=== PATIENT | female | born 1945 | race Caucasian/White ===

== ENCOUNTER → 2017-06-23 | Outpatient (CLI) | payer OTHER ==
[~2017-06-23] MED LIST: ASPIR LOW81 MG PO; ASPIRIN ADULT L81 M1 PO; AUGMENTIN 875 M1 TAB PO; AUGMENTIN 875875 MG PO; CARVEDILOL6.25 MG PO; CIPROFLOXACIN500 MG PO; CLOPIDOGREL75 MG PO; DULCOLAX5 MG PO; DUONEB 3 MG/3 ML3 M1 NEB; INCRUSE EL62.5 MCG/A IH; MEDROL DOSEPAK4 MG PO; NO DAILY MEDS; OXYCODONE5 MG PO; SIMVASTATIN40 MG PO; SPIRIVA18 MCG PO; SYMBICORT1 AER INH
== END | disposition home or self-care (01) ==
LOC: LAB 10:44
DX: D70.9 Neutropenia, unspecified (principal); R59.9 Enlarged lymph nodes, unspecified; C34.90 Malignant neoplasm of unspecified part of unspecified bronchus or lung; C34.92 Malignant neoplasm of unspecified part of left bronchus or lung; Z79.899 Other long term (current) drug therapy

== ENCOUNTER → 2018-02-06 | Outpatient (CLI) | payer OTHER | END | disposition home or self-care (01) | LOC: CARD 14:51 | DX: I08.2 Rheumatic disorders of both aortic and tricuspid valves (principal); I48.91 Unspecified atrial fibrillation ==

== ENCOUNTER → 2018-03-27 | Outpatient (CLI) | payer OTHER ==
[~2018-03-27] MED LIST changes: +ARMOUR THYROID15 M1 PO; +CARDIZEM CD300 MG PO; +CRESTOR10 M1 PO; +DILTIAZEM 24HR120 MG PO; +DILTIAZEM HCL60 M1 PO; +DOXYCYCLINE100 M3 PO; +LASIX40 MG PO; +PACERONE200 MG PO; +PROPAFENONE HC150 MG PO; +SYMB160 INH; -SYMBICORT1 AER INH; +TENORMIN25 MG PO; +VITAMIN D35000 UNIT PO; +XARELTO20 M1 PO
== END | disposition home or self-care (01) ==
LOC: CARD 11:00
DX: R00.0 Tachycardia, unspecified (principal); I08.0 Rheumatic disorders of both mitral and aortic valves; I31.4 Cardiac tamponade

== ENCOUNTER → 2018-03-30 | Outpatient (CLI) | payer OTHER ==
[~2018-03-30] MED LIST changes: -ARMOUR THYROID15 M1 PO; -DILTIAZEM 24HR120 MG PO; -DOXYCYCLINE100 M3 PO; -PACERONE200 MG PO; -VITAMIN D35000 UNIT PO
== END | disposition home or self-care (01) ==
LOC: US 13:30
DX: I65.23 Occlusion and stenosis of bilateral carotid arteries (principal); I31.4 Cardiac tamponade; I77.9 Disorder of arteries and arterioles, unspecified

== ENCOUNTER 2018-08-03 02:46 | Inpatient (IN) | payer OTHER ==
[~2018-08-03] VITALS: Ht 160 cm; Wt 81.8 kg
[2018-08-03] VITALS (8 sets, daily range): BP systolic 91–128; BP diastolic 42–68
--- NOTE | ~2018-08-03 | EKG ---
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 Ectopic atrial rhythm Low voltage, extremity leads Anterolateral ST/T abnormality, ischemia, Prolonged QT interval Compared to ECG 07/19/2018 14:06:38 Early repolarization now present Possible ischemia now present First degree AV block no longer present ST (T wave) deviation no longer present Electronically Signed On 08-05-2018 12:46:18 PDT by Shoaib Lee CM:EKGRPT:ELECTROCARDIOGRAM REPORT [id number] REESE FRANKEL DRAFT REPORT REESE HERNANDEZ DO
--- NOTE | ~2018-08-03 | PR ---
[place], [place] PROGRESS NOTE NAME: ALKA BETH [facility] #: [id number] UNIT #: [id number] ROOM: 522 DOCTOR: KAMI RIZO MD,GUILLERMINA BIRTHDATE: [birth year] DOS: 08/05/2018 PULMONARY PROGRESS NOTE SUBJECTIVE: The patient noted comfortable at this time, resting on the bed this morning of assessment has not been noted any ongoing acute new complaints at this time, shortness breath was improving. Coughing has been decreasing. There was a small amount of sputum expectoration. The patient transferred to ICU to the telemetry floor. Denies symptoms of fever or chills, cough or any hemoptysis. Remaining systems were reviewed. They were noted negative. OBJECTIVE: VITAL SIGNS: For the patient which has been recorded shows a normal temperature, respiratory rate 20, heart rate 100, blood pressure 94/61. Pulse oxygen saturation with 3.5 liters nasal canula 95% saturation. Intake 1340, output 1975 mL, the patient has negative 635 mL. HEENT: Examination shows head was atraumatic. Eyes nonicterus. CARDIOVASCULAR: S1, S2 was audible. LUNGS: Noted decreased breath sounds in the lungs bilaterally with scattered crackles. Breaths are noted decreased more on the left than the right side. There are no wheezing heard. ABDOMEN: Soft, nontender. Bowel sounds present. EXTREMITIES: The patient was noted without any acute edema. VISIBLE SKIN: No lesions or rashes. CENTRAL NERVOUS SYSTEM: Intact. MUSCULOSKELETAL: Without acute deformities. LABORATORY DATA: CBC today, WBC count 19.6, hemoglobin 10.5, hematocrit 34.1, platelet count were normal, 94% segmented neutrophils. BMP that was done for this patient was noted as BUN 25, creatinine 1.69. CO2 was 34. IMPRESSION: 1. Resolving acute congestive heart failure with acute pneumonia as well. History of known lung cancer. 2. Acute respiratory failure was also noted for this patient with chronic respiratory failure. 3. Chronic anticoagulation, history of atrial fibrillation. 4. Leukocytosis was also noted. Today, CBC showed, WBC count 19.6. PLAN OF MANAGEMENT: Continuation of the bronchodilators and oxygen supplementation at the present time. Continue the BiPAP as ordered. Continue diuretics, mild leukocytes. Solu-Medrol dose will be decreased possibly tomorrow. Chest x-ray in the morning as the progression of the current pulmonary infiltration and pleural effusions. No thoracentesis was planned at this time. Usual care, other therapy, plan of management, additional treatment changes made based on progression of illness. [place], [place] PROGRESS NOTE NAME: ALKA BETH UNIT #: [id number] ROOM: 2 DOCTOR: GUILLERMINA DELGADILLO MD BIRTHDATE: [birth year] GUILLERMINA MCCLURE MD CM:PNTRANS [id number] GUILLERMINA RIZO MD 08/15/18 1043 interface
--- NOTE | ~2018-08-03 | EKG ---
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1945 Requested By: REESE HERNANDEZ Order Number: [id number] Reading MD: Shoaib Lee Measurements Intervals [place] Rate: 90 P: 265 [place]: 133 QRS: -82 QRSD: 107 T: 95 QT: 420 QTc: 514 Interpretive Statements Sinus or ectopic atrial rhythm Inferior infarct, old Lateral leads are also involved Prolonged QT interval Compared to ECG 07/19/2018 14:06:38 Myocardial infarct finding now present First degree AV block no longer present ST (T wave) deviation no longer present Electronically Signed On 08-05-2018 12:44:49 PDT by Shoaib Lee CM:EKGRPT:ELECTROCARDIOGRAM REPORT [id number] 1244 REESE FRANKEL DRAFT REPORT REESE HERNANDEZ DO
--- NOTE | ~2018-08-03 | CON ---
[place], [place] RE[facility] CONSULTATION [id number] UNIT #: [id number] ROOM: [facility] DOCTOR: GUILLERMINA DELGADILLO MD BIRTHDATE: [birth year] DOS: 08/03/2018 PULMONARY CONSULTATION, EVALUATION, AND MANAGEMENT CONSULTATION REQUESTED BY: Hospitalist service. REASON FOR CONSULTATION: For the assessment of current respiratory failure. HISTORY OF PRESENT ILLNESS: This is a 73-year-old white female patient who has been noted in the past followed up in the outpatient regular basis. She has been known with past history of cancer, which has been managed in the past and being monitored by the medical oncologist at [place], [place]. The patient came into the hospital and admitted under the care of the hospitalist services. The patient was reporting having progressive increase of shortness of breath ongoing for the past few days. Symptoms are noted progressive worsening as well. She has been using more oxygen without any relief. She was also reporting symptoms of chills as well. The symptoms have been present for the 2-3 weeks as well. Chest congestion was noted with some sputum expectoration. There were no symptoms of hemoptysis. She was also complaining of intermittent pain in the substernal area, which described to be sharp at this time without any radiation. The patient has been assessed in the hospital and was admitted to the hospital and a chest x-ray done, was noted to increase volume loss on the left side of the chest. REVIEW OF SYSTEMS: CONSTITUTIONAL: Fatigue and tiredness noted without any symptoms of fever or chills. EYES: Denies burning, redness, or tenderness. EARS, NOSE, THROAT SYMPTOMS: Denies sore throat, hoarseness, otalgia, postnasal drainage or epistaxis. CARDIOVASCULAR: No anginal pain, edema, or pain of the lower extremities. GASTROINTESTINAL: Denies dysphagia, nausea, vomiting, diarrhea, abdominal pain, hematemesis, melena, or hematochezia. SKIN: No abnormal lesions or rashes. MUSCULOSKELETAL: No acute joint pain, redness, or tenderness. CENTRAL NERVOUS SYSTEM: Denies dizziness, headache, diplopia, or syncopal episodes. Remaining systems were reviewed and they were noted all negative. PAST MEDICAL HISTORY: 1. History of chronic hypoxic respiratory failure, long-term use of oxygen 3 liters nasal cannula. 2. Chronic obstructive pulmonary disease. 3. History of bronchial asthma, severity unknown and defined. 4. Essential hypertension. 5. Coronary artery disease. 6. Inoperable left lung cancer treated with radiation and chemotherapy. 7. Chronic obesity. 8. History of paroxysmal atrial fibrillation. [place], [place] REPORT OF CONSULTATION NAME: ALKA BETH UNIT #: [id number] ROOM: [facility] DOCTOR: GUILLERMINA DELGADILLO MD BIRTHDATE: [birth year] 9. Hypothyroidism. SOCIAL HISTORY: The patient is and lives at home. No history of alcohol use, illicit drug use. Tobacco use, started patient as a teenager, as a pack of cigarettes per day until 2011. FAMILY HISTORY: The patient was noted both parents have been . Father of a motor vehicle accident. Mother of an old age. HOME MEDICATIONS: Listed on admission as use of Breo Ellipta, Symbicort, Pacerone, aspirin, atenolol, Cardizem, Lasix, Xarelto, Crestor, [place] Thyroid. Treated with the medication including use of Xarelto for anticoagulant. CURRENT MEDICATIONS: Which has been ongoing administrated were vitamin D, aspirin, Lipitor, thyroid, atenolol, Xarelto, Solu-Medrol 40 mg b.i.d., amiodarone, Pulmicort Respules, Lasix, DuoNeb, IV Rocephin, and Zithromax. DRUG ALLERGIES: No known drug allergies. PHYSICAL EXAMINATION: GENERAL: A 73-year-old female patient who has been noted to be comfortable on the resting on the bed without any distress this morning of assessment, using oxygen supplementation by nasal cannula. VITAL SIGNS: Height of 5 feet 3 inches, weight 180 pounds, BMI 31.9 on this admission in the ICU. Vital signs, which are recorded at a normal temperature since admission, respiratory rate ranged between 18-28. The heart rate of 73-182, blood pressure 92/42-125/58. Pulse oxygen saturation recorded on 3 liters nasal cannula, rest is 92% saturation. HEENT: Kixi-zr-qqhempjn obesity. Head was atraumatic. Eyes nonicterus. NECK: Supple. CARDIOVASCULAR: S1, S2 is audible. LUNGS: The patient was noted with severely reduced breath sounds on the left chest auscultation, expiratory wheezing noted in the left side of the chest. ABDOMEN: Soft, nontender. Bowel sounds present. EXTREMITIES: The patient noted without acute edema. MUSCULOSKELETAL: Noted without any acute deformities CENTRAL NERVOUS SYSTEM: Intact. LABORATORY DATA: CBC that was done on 08/03/2018, this morning of admission earlier in the Emergency Room, WBC count normal, hemoglobin 10.4, platelet count was normal, eosinophils of 3.3%. PT/INR 1.3, PTT of 32.8. CMP that was done 08/03/2018, BUN 21, creatinine 1.50. Arterial blood gas that was done 4:29 a.m. on 3 liters, pH 7.45, pCO2 of 37, pO2 54. Arterial blood gas, which were repeated at 7:00 a.m. this morning, pH of 7.46, pCO2 of 33, pO2 79.4 with 45% oxygen, BiPAP settings of 12/6. Troponin were noted as negative study. The chest x-ray that was done personally reviewed, 1 view noted with increasing opacification as compared with the last chest x-ray from 04/2018 with progressive volume loss on the left side. The tracheal deviation also noted in the left side. Compensatory hyperinflation on the right lung with a small pleural fluid was suspected possibility of interstitial edema cannot be [place], [place] REPORT OF CONSULTATION NAME: ALKA BETH UNIT #: [id number] ROOM: [facility] DOCTOR: GUILLERMINA DELGADILLO MD BIRTHDATE: [birth year] completely excluded. IMPRESSION: 1. The patient will be currently admitted to the hospital noted acute on chronic hypoxemic respiratory failure as a result of consideration of congestive heart failure, very likely. 2. Concomitant acute exacerbation of chronic obstructive pulmonary disease was also considered. 3. The patient with known history of atrial fibrillation noted relatively uncontrolled at this time, treated with amiodarone and anticoagulants of Xarelto 4. History of known lung cancer, inoperable, treated with radiation and chemotherapy with fibrothorax as well, part of the lung noted expanded previous of left upper lung, which appeared to be complete atelectasis at this time would be considered. The patient stated that she had a PET scan, which has been done by her medical oncologist most likely last May and reported without any evidence of malignant process at that time. PLAN OF MANAGEMENT: Use of the BiPAP would be advised to be continued. Continue diuretic. Monitor respiratory status. Obtain CT scan of chest without contrast because of elevation of BUN and creatinine, IV contrast would not be used. Bronchodilators to be administered. Assess the patient's Pleural fluid, which will be visible on the CT scan of the chest. The patient has involved with the suggesting additional treatment changes based on made after the CT scan of the chest results become available. Other therapy, plan of management. Usual care, other supportive plan of management, treatment plan and of care and all other therapies. Thanks for allowing me to participate in the care of this patient. GUILLERMINA MCCLURE MD CM:CONSTR:REPORT OF CONSULTATION 1448 08/03/18 1953 interface
--- NOTE | ~2018-08-03 | PR ---
[place], [place] PROGRESS NOTE NAME: ALKA BETH UNIT #: [id number] ROOM: 522 DOCTOR: GUILLERMINA DELGADILLO MD BIRTHDATE: [birth year] DOS: 08/07/2018 PULMONARY PROGRESS NOTE SUBJECTIVE: The patient independently seen and examined in [id number] encounter, history was confirmed. Physical examination performed. The labs were reviewed. Note done by the product manager medical device was approved. Assessment and management for today's note was personally completed. The patient was noted comfortable at this time, resting on the bed. Shortness of breath is improving. The coughing has been resolving. There were no symptoms of chest pain. She is stating she was feeling her symptoms close to the baseline this morning. Oxygen supplement continue the patient about 5 liters nasal cannula. PHYSICAL EXAMINATION: GENERAL: The patient comfortably sitting on the bed this morning of assessment. VITAL SIGNS: Normal temperature, respiratory rate 18, heart rate 87, blood pressure 89/48-118/80. Pulse oxygen saturation on 3-4 liters nasal cannula was 92% saturation. HEENT: Head was atraumatic. Eyes nonicterus. NECK: Supple. CARDIOVASCULAR: S1, S2 audible. LUNGS: Noted decreased breath sounds on the left lung with no wheeze or crackles. ABDOMEN: Soft, nontender. Bowel sounds present. EXTREMITIES: No acute change. IMPRESSION: Stable respiratory status, improving at this time. Clinical radiology resolving acute pneumonia, congestive heart failure and acute on chronic respiratory failure. PLAN OF MANAGEMENT: The patient could be discharged on oral antibiotics and diuretics and to readjust the oxygen need prior to discharge. Discharge planning was discussed with primary care attending. [place], [place] PROGRESS NOTE NAME: SOY BETHRA Dalia UNIT #: [id number] ROOM: 522 DOCTOR: GUILLERMINA DELGADILLO MD BIRTHDATE: [birth year] GUILLERMINA MCCLURE MD CM:PNTRANS [id number] GUILLERMINA RIZO MD 08/15/18 1045 interface
--- NOTE | ~2018-08-03 | PR ---
[place], [place] PROGRESS NOTE NAME: ALKA BETH UNIT #: [id number] ROOM: 522 DOCTOR: GUILLERMINA DELGADILLO MD BIRTHDATE: [birth year] DOS: 08/06/2018 PULMONARY PROGRESS NOTE SUBJECTIVE: The patient noted comfortable at this time, resting on the bed at this time. The patient has not reported any ongoing acute respiratory complaints at the present time. Shortness of breath has been improving. The coughing has been noted mild. There were no symptoms of chest pain, fever or chills. OBJECTIVE: VITAL SIGNS: For the patient which were recorded this morning, the temperature remains normal, respiratory rate recorded at 20, heart rate of 103, blood pressure 92/65. Intake 1690. Pulse ox saturation 3-1/2 liters nasal cannula 95% saturation. BiPAP 95% saturation. HEENT: Examination shows head was atraumatic. Eyes nonicterus. NECK: Supple. CARDIOVASCULAR: S1, S2 audible. LUNGS: The patient was noted without any wheezing or crackles on the right side. The left side, noted improvement in aeration in the left lower lung. LABORATORY DATA: The patient's chest x-ray this morning noted improvement in aeration, resolving acute pulmonary filtration, resolution of the right pleural effusion. IMPRESSION: 1. Resolving acute congestive heart failure, acute pneumonia. 2. History of known lung cancer, treated with chemotherapy and radiation. PLAN OF MANAGEMENT: Continue current plan of management at this time without any changes. Possible consideration of home discharge upon stability in the next 24 hours may be suggested. [place], [place] PROGRESS NOTE NAME: ALKA BETH Daila UNIT #: [id number] ROOM: 522 DOCTOR: GUILLERMINA DELGADILLO MD BIRTHDATE: [birth year] GUILLERMINA MCCLURE MD CM:PNTRANS [phone] GUILLERMINA RIZO MD 08/15/18 1045 interface
--- NOTE | ~2018-08-03 | EKG ---
[place], [place] ELECTROCARDIOGRAM REPORT NAME: ALKA BETH UNIT #: [id number] ROOM: 522 DOCTOR: NBA DRAFT REPORT BIRTHDATE: [address] 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1945 Requested By: REESE HERNANDEZ Order Number: [id number] Reading MD: Shoaib Lee Measurements Intervals [place] Rate: 96 P: 240 [place]: 166 QRS: -42 QRSD: 95 T: 170 QT: 366 QTc: 463 Interpretive Statements Ectopic atrial rhythm Left axis deviation Low voltage, extremity and precordial leads St/T abnormality inferior and anteriro Compared to ECG 07/19/2018 14:06:38 Left-axis deviation now present First degree AV block no longer present Prolonged QT interval no longer present ST (T wave) deviation still present Electronically Signed On 08-05-2018 12:48:00 PDT by Shoaib Lee CM:EKGRPT:ELECTROCARDIOGRAM REPORT [id number] 1248 REESE FRANKEL DRAFT REPORT REESE HERNANDEZ DO
--- NOTE | ~2018-08-03 | PR ---
[place], [place] PROGRESS NOTE NAME: ALKA BETH [facility] #: [id number] UNIT #: [id number] ROOM: 522 DOCTOR: KAMI RIZO MD,GUILLERMINA BIRTHDATE: [birth year] DOS: 08/04/2018 PULMONARY PROGRESS NOTE SUBJECTIVE: The patient was noted comfortable at this time. Shortness breath was noted decreased Cough has been noted, but there was no sputum expectoration stated. Denies symptoms of fever or chills. Denies symptoms of hemoptysis. The patient is using the BiPAP, also requires the oxygen supplementation, high flow nasal cannula with mild exertion, hypoxia was noted. Otherwise, the patient noted comfortable. Denies symptoms of headache or diplopia. Denies symptoms of pain of the lower extremities. Remaining systems were reviewed with the patient and they were noted all negative. OBJECTIVE: GENERAL: At this time, the patient is comfortable, sitting on the bed, using oxygen supplementation with nasal cannula. VITAL SIGNS: Normal temperature, respiratory rate of 20-16, heart rate of 98-69, and blood pressure of 90/51-100/40. Pulse oxygen saturation on 4 liters nasal cannula is 91% and 94% saturation. HEENT: Examination shows head was atraumatic. Eyes nonicterus. NECK: Supple. CARDIOVASCULAR SYSTEM: S1, S2 is audible. LUNGS: Noted decreased breath sounds, greater on the left than the right side. There was no wheezing. ABDOMEN: Soft, nontender. Bowel sounds present. EXTREMITIES: Noted without any acute edema. MUSCULOSKELETAL: Without acute deformities. CENTRAL NERVOUS SYSTEM: Noted essentially intact. IMAGING DATA: CT scan of the chest, which was done with contrast was reviewed independently from PACS images The patient was noted with evidence of a moderate right pleural fluid, small left-sided pleural fluid, pulmonary infiltration noted in the lung rivers as compared with previous chest x-ray. A 1.1 cm nodule noted in the right lower lobe at this time as well. Volume loss was noted in the left hemithorax, progressive with area of calcification. LABORATORY DATA: BMP this morning, BUN is 18 and creatinine is 1.55. Remaining electrolytes are normal. CBC, normal WBC count, hemoglobin was 9.4, hematocrit was 30.4, and platelet count was normal. IMPRESSION: 1. The patient with evidence of known history of lung cancer, treated with chemotherapy, radiation for cancer in right lung with post-radiation therapy changes were noted in right hemithorax. In addition, the patient was also noted with findings of acute pneumonia, very likely. 2. Fluid overload, congestive heart failure also to be considered very likely for the current pleural fluid formation as well. 4. The patient with acute exacerbation of chronic obstructive pulmonary disease/bronchial asthma as well. 5. Right lobe pulmonary nodule stable at this time unclear. [place], [place] PROGRESS NOTE NAME: ALKA BETH UNIT #: [id number] ROOM: 522 DOCTOR: KAMI RIZO MD,GUILLERMINA BIRTHDATE: [birth year] PLAN OF MANAGEMENT: Continue the corticosteroids, bronchodilator, and current antibiotics. The patient could be transferred to telemetry floor. Continuation of the close monitor of respiratory status. Diuretic therapy should be given as ongoing as Lasix 40 mg b.i.d. that will result in resolution of the pleural fluid. Conservative treatment will be continued. Titrate oxygen supplementation to maintain pulse ox 92% or greater. Supportive care, other therapy, plan of management, care, and plan of treatments. GUILLERMINA MCCLURE MD CM:PNTRANS [id number] GUILLERMINA RIZO MD 08/15/18 1042 interface
--- NOTE | ~2018-08-03 | PR ---
[place], [place] PROGRESS NOTE NAME: ALKA BETH UNIT #: [id number] ROOM: 522 DOCTOR: AWILDA HENSLEY DO BIRTHDATE: [birth year] DOS: 08/07/2018 PULMONARY PROGRESS NOTE SUBJECTIVE: The patient was resting in bed comfortably, eating her breakfast this morning. The patient states that her breathing is much better today. The patient has only a mild cough. The patient denies any chest pain, fever or chills. All other review of systems negative. PHYSICAL EXAMINATION: VITAL SIGNS: Temperature is 97.5, pulse rate 87, respiratory rate 18, blood pressure is 118/80, pulse ox 95% on 4 liters by nasal cannula. HEENT: Normocephalic, atraumatic. Eyes nonicteric. NECK: Supple, nontender, trachea midline. CARDIOVASCULAR: S1, S2 audible. LUNGS: Right lung, mild wheezing. The left side has some breath sounds; however, they are coarse and scattered. IMAGING: Chest x-ray shows improvement of the aeration of the left lung. Right lung shows improvement in the effusion. ASSESSMENT: 1. Resolving acute congestive heart failure, pulmonary edema. 2. Acute pneumonia, resolving. 3. History of known lung cancer, which has been treated with radiation and chemotherapy. PLAN: Continue current plan at this time without any changes. The patient will be discharged home from ID standpoint with additional 5-7 days of antibiotics. Miguel A Hensley DO [place], [place] PROGRESS NOTE NAME: ALKA BETH UNIT #: [id number] ROOM: 522 DOCTOR: AWILDA HENSLEY DO BIRTHDATE: [birth year] GUILLERMINA MCCLURE MD CM:PNTRANS 1209 09 AWILDA HENSLEY DO 08/08/18 1228 interface
[~2018-08-03 02:46] MED LIST changes: +PACERONE200 MG PO
[2018-08-03 03:17] LABS: BASO # 0.1 10*3/uL (0.0-0.1); EOS # 0.2 10*3/uL (0.0-0.4); EOS % 3.3 % (1.0-4.0); HEMATOCRIT 32.5 % (37.0-47.0); HEMOGLOBIN 10.4 g/dl (12.0-16.0); LYMPH # 0.9 10*3/uL (1.3-4.4); LYMPH % 12.2 % (27.0-41.0); MEAN CELL VOLUME 98.8 fl (81.0-99.0); MEAN CORPUSCULAR HGB 31.6 pg (27.0-31.0); MEAN PLATELET VOLUME 8.9 fl (9.6-12.3); MONO # 0.6 10*3/uL (0.1-1.0); MONO % 8.5 % (3.0-9.0); NEUT # 5.2 10*3/uL (2.3-7.9); NEUT % 74.4 % (47.0-73.0); PLATELET COUNT AUTOMATED 372 10*3/uL (130-400); RED BLOOD COUNT 3.29 10*6/uL (4.10-5.10); RED CELL DISTRI WIDTH 17.1 % (0-14.5)
[2018-08-03 03:35] LABS: ALBUMIN 2.8 gm/dl (3.1-4.5); CREATININE 1.5 mg/dL (0.55-1.02); POTASSIUM 3.6 mmol/L (3.5-5.1); TOTAL PROTEIN 7.4 gm/dL (6.4-8.2)
[2018-08-03 03:38] LABS: ACT PARTIAL THROMBO TIME 32.8 SECONDS (20.0-32.1); INTERNATIONAL NORM RATIO 1.3 (2.0-3.5)
[2018-08-03 03:41] LABS: TROPONIN I 0.03 ng/ml (<0.045)
[2018-08-03 04:35] LABS: ABG BASE EXCESS 2.7 mmol/L (-2.0-2.0); ABG HCO3 26.3 mmol/l (22-26); ABG O2 SATURATION 89.5 % (95-97); ARTERIAL BLOOD GAS PCO2 37.9 mmHg (35-45); ARTERIAL BLOOD GAS PH 7.454 (7.35-7.45); ARTERIAL BLOOD GAS PO2 54.3 mmHg (80-90)
--- NOTE | 2018-08-03 04:50 | NUR ---
A 73 YEAR OLD FEMALE admitted to ICCU, under the services of JONA Mixon DO with a diagnosis of PLEURAL EFFUSION, COPD. Chief complaint is INCREASING SOB. Patient arrived via stretcher from ER. Monitor applied. Initial assessment completed. Vital signs taken and recorded. JONA MIXON DO notified of admission to the unit. Orders received. See assessment for past medical history, medications and allergies. Patient and/or family oriented to unit. [facility] visitation policy reviewed. Clothing/patient valuable form completed. PATRIZIA GOULD
--- NOTE | 2018-08-03 05:36 | NUR ---
PT PLACED ON BIPAP ORDERED. PULSE OX 98%. LASIX IV GIVEN ORDERED.
--- NOTE | 2018-08-03 05:57 | NUR ---
UNABL TO DO MEDREC. PT DOES NOT KNOW HOME MEDS. DTR HAD LIST AND TOOK HOME WITH HER. UNABLE TO CALL PHARMACY NOW.
--- NOTE | 2018-08-03 06:09 | NUR ---
RESTING IN BED WITH HOB ELEVATED. SIDE RAILS UP X'S 2. CALL LIGHT INREACH. PULSE OX 98% ON 45% FIO2 VIA BIPAP. HEP LOCK INTACT. BETH PATENT AND DRAINING CLEAR YELLOW URINE. NO DISTRESS NOTED. CONDITION GUARDED.
[2018-08-03 07:15] LABS: ABG HCO3 27.7 mmol/l (22-26); ABG O2 SATURATION 96.5 % (95-97); ARTERIAL BLOOD GAS PCO2 38.7 mmHg (35-45); ARTERIAL BLOOD GAS PH 7.466 (7.35-7.45); ARTERIAL BLOOD GAS PO2 79.4 mmHg (80-90)
--- NOTE | 2018-08-03 09:03 | NUR ---
DR MCCLURE SAW PT
[2018-08-03] MEDS ORDERED: VITAMIN D35000 UNIT PO (11:40)
[2018-08-03] MEDS ORDERED: ARMOUR THYROID15 M1 PO (11:43)
--- NOTE | 2018-08-03 15:52 | NUR ---
up to recliner
--- NOTE | 2018-08-03 20:22 | NUR ---
1930 RESTING IN BED WITH HOB ELEVATED. CALL LIGHT IN REACH. PULSE OX IS 92% ON 4L. HEP LOCK INTACT. NO DISTRESS NOTED. STATES " I FEEL MUCH BETTER,"
[2018-08-04] VITALS: BP 92/54
--- NOTE | 2018-08-04 00:24 | NUR ---
RESTING IN BED WITH EYES CLOSED. APPEARS TO BE SLEEPING. PULSE OX 98% ON 4L. REFUSED BIPAP EARLIER. WILL CONT TO MONITOR.
[2018-08-04 04:00] VITALS: BP 96/60
[2018-08-04 05:55] LABS: CREATININE 1.55 mg/dL (0.55-1.02); POTASSIUM 3.7 mmol/L (3.5-5.1)
--- NOTE | 2018-08-04 06:16 | NUR ---
SLEPT WELL THIS SHIFT. REMAINS WIHTOUT C/O'S RESPIRATIONS EASY. 02 INTACT. BETH PATENT. NO DISTRESS NOTED CONDITION GUARDED.
[2018-08-04 06:19] LABS: HEMATOCRIT 30.4 % (37.0-47.0); HEMOGLOBIN 9.4 g/dl (12.0-16.0); MEAN CELL VOLUME 100.3 fl (81.0-99.0); MEAN CORPUSCULAR HGB CONC 30.9 g/dl (33.0-37.0); MEAN PLATELET VOLUME 9.2 fl (9.6-12.3); PLATELET COUNT AUTOMATED 318 10*3/uL (130-400); RED BLOOD COUNT 3.03 10*6/uL (4.10-5.10); RED CELL DISTRI WIDTH 17.1 % (0-14.5); WHITE BLOOD COUNT 8.9 10*3/uL (4.8-10.8)
[2018-08-04 07:49] LABS: PLATELET SUFFICIENCY NORMAL (NORMAL); TOTAL CELLS COUNTED 100 #CELLS
[2018-08-04 08:00] VITALS: BP 100/40
[2018-08-04 12:00] VITALS: BP 90/51
--- NOTE | 2018-08-04 12:53 | NUR ---
STATES OKAY FOR PATIENT TO BE TRANSFERRED FROM ICU TO FLOOR. NOTIFIED.
--- NOTE | 2018-08-04 14:55 | NUR ---
ASSUMED PATIENT CARE AT THIS TIME. [facility]. PATIENT AWAKE AND ALERT ON 4LNC. DENIES CP, SOB, PAIN AT THIS TIME. HAS NO COMPLAINTS. SEE ASSESSMENT.
[2018-08-04 16:00] VITALS: BP 112/62
[2018-08-04 20:00] VITALS: BP 100/48; BP 91/48
[2018-08-05] VITALS: BP 92/60
[2018-08-05 06:20] LABS: HEMATOCRIT 34.1 % (37.0-47.0); HEMOGLOBIN 10.5 g/dl (12.0-16.0); MEAN CELL VOLUME 101.8 fl (81.0-99.0); MEAN CORPUSCULAR HGB 31.3 pg (27.0-31.0); MEAN CORPUSCULAR HGB CONC 30.8 g/dl (33.0-37.0); MEAN PLATELET VOLUME 8.9 fl (9.6-12.3); PLATELET COUNT AUTOMATED 373 10*3/uL (130-400); RED BLOOD COUNT 3.35 10*6/uL (4.10-5.10); RED CELL DISTRI WIDTH 17.6 % (0-14.5); WHITE BLOOD COUNT 19.6 10*3/uL (4.8-10.8)
[2018-08-05 06:39] LABS: PLATELET SUFFICIENCY NORMAL (NORMAL); POLYCHROMASIA SLIGHT; TOTAL CELLS COUNTED 100 #CELLS
[2018-08-05 06:46] LABS: CREATININE 1.69 mg/dL (0.55-1.02); POTASSIUM 3.9 mmol/L (3.5-5.1)
[2018-08-05 08:00] VITALS: BP 94/61
[2018-08-05 12:00] VITALS: BP 107/62
[2018-08-05 15:45] VITALS: BP 90/58
[2018-08-05 20:00] VITALS: BP 92/65
--- NOTE | 2018-08-05 22:52 | NUR ---
PATIENT REQUESTED BIPAP BE PUT ON AT THIS TIME. SHE THEN REQUESTED TO BE AWOKEN AT 3AM TO SEE IF SHE FEELS "WELL ENOUGH" TO CONTINUE WEARING IT. PATIENT SHOWS NO SIGNS OR SYMPTOMS OF DISTRESS.
[2018-08-06] VITALS: BP 77/46; BP 92/56
--- NOTE | 2018-08-06 03:26 | NUR ---
PATIENT FOUND OFF BIPAP AND BACK ON NASAL CANNULA AT 4 L/M.
[2018-08-06 06:24] LABS: HEMATOCRIT 33.9 % (37.0-47.0); HEMOGLOBIN 10.3 g/dl (12.0-16.0); MEAN CELL VOLUME 101.2 fl (81.0-99.0); MEAN CORPUSCULAR HGB 30.7 pg (27.0-31.0); MEAN CORPUSCULAR HGB CONC 30.4 g/dl (33.0-37.0); MEAN PLATELET VOLUME 8.9 fl (9.6-12.3); PLATELET COUNT AUTOMATED 355 10*3/uL (130-400); RED BLOOD COUNT 3.35 10*6/uL (4.10-5.10); RED CELL DISTRI WIDTH 17.3 % (0-14.5); WHITE BLOOD COUNT 13.9 10*3/uL (4.8-10.8)
[2018-08-06 06:45] LABS: PLATELET SUFFICIENCY NORMAL (NORMAL); TOTAL CELLS COUNTED 100 #CELLS
[2018-08-06 06:46] LABS: POLYCHROMASIA SLIGHT
[2018-08-06 06:51] LABS: CREATININE 1.68 mg/dL (0.55-1.02); POTASSIUM 4.1 mmol/L (3.5-5.1)
[2018-08-06 08:00] VITALS: BP 102/65
--- NOTE | 2018-08-06 10:08 | NUR ---
PATIENT HAS C/O CONSTIPATION. DULCOLAX ADMINISTERED PRESCRIBED. WILL MONITOR.
[2018-08-06 10:09] VITALS: BP 100/42
--- NOTE | 2018-08-06 12:25 | NUR ---
ATENOLOL GIVEN PER JAMES DELACRUZ. PATIENT HAS CHRONIC LOW BP. 108/54 AT THIS TIME. WILL MONITOR.
--- NOTE | 2018-08-06 14:01 | NUR ---
Pattern Duplicator in to talk to patient. Patient states lives at HOME with . There are NO steps in the home. Physician: [facility] Pharmacy: [facility] health services: NONE Patient's level of ADLs: INDEPENDENT Patient has working utilities: YES DME: OXYGEN, PORTABLE TANKS, NEBULIZER Follow-up physician's appointment after d/c: WILL BE MADE BY HOSPITALIST NURSE DIRECTOR ON DISCHARGE Does patient want to access PORTAL?: NO Discharge plan PT LIVES AT HOME WITH HER AND IS INDEPENDENT IN HER CARE. DENIES ANY NEEDS ON DISCHARGE. WILL CONTINUE TO FOLLOW. DAUGHTER WILL TAKE HER HOME.. KAREN JEFFRIES
[2018-08-06 16:00] VITALS: BP 102/64
[2018-08-06 20:00] VITALS: BP 107/86
--- NOTE | 2018-08-06 20:00 | NUR ---
PATIENT SITTING UP IN BED, HAS NO COMPLAINTS. STATED SHE HASNT HAD A BM SINCE RECEIVING DULCOLAX TODAY. WANTED TO WAIT AWHILE BEFORE SHE TOOK ANYTHING ELSE. PATIENT STATED HE SHORTNESS OF BREATH HAS IMPROVED, DENIES CHEST PAIN. PATIENT LEFT WITH CALL LIGHT IN REACH.
--- NOTE | 2018-08-06 23:08 | NUR ---
24 HR chart check completed.
[2018-08-07] VITALS: BP 118/80
--- NOTE | 2018-08-07 01:09 | NUR ---
PATIENT AWOKE AND WANTED OFF BIPAP. THEN ASK FOR SOMETHING TO HELP HER HAVE A BM. DULCOLAX WAS GIVEN. WILL AWAIT EFFECTIVENESS.
[2018-08-07 07:59] VITALS: BP 89/48
--- NOTE | 2018-08-07 09:25 | NUR ---
Rivero catheter removed per order. 650cc output from drainage bag, blood tinged output. Catheter intact upon removal. Patient tolerated well.
[2018-08-07] MEDS ORDERED: DILTIAZEM 24HR120 MG PO (11:14)
[2018-08-07] MEDS ORDERED: DOXYCYCLINE100 M3 PO (11:14)
--- NOTE | 2018-08-07 11:36 | NUR ---
HOME O2 EVALUTATION PRE BP 89/61 SPO2 ON ROOM AIR AT REST - 85% PT PLACED ON 4LNC. SPO2 INCREASED TO 93% PT AMBULATED ON 4LNC - SPO2 87% O2 INCREASED TO 6LNC - SPO2 91% SPO2 POST AMBULATION ON 4LNC 95% POST BP 100/60
[2018-08-07 12:10] VITALS: BP 89/61
--- NOTE | 2018-08-07 14:34 | NUR ---
PT WILL RETURN HOME WITH NO NEW NEEDS. WILL CONTINUE TO FOLLOW.
--- NOTE | 2018-08-07 14:38 | NUR ---
Discharge instructions reviewed with patient/family. Patient receptive and verbalizes understanding. Follow-up care arranged. Written instructions given to patient/family. PATIENT TAKEN FROM FLOOR BY WHEELCHAIR BY AIDE. NO S/S OF DISTRESS. ARTIE DAVIS
== END 2018-08-07 14:38 | disposition home or self-care (01) | DRG 871 ==
LOC: ED 02:46 → EDHOLD 04:07 → ICCU 04:07 → 5E 04:07 → ICCU 04:17 → 5E 08-04 14:43
PROVIDERS: Emergency Medicine; Family Medicine; Student in an Organized Health Care Education/Training Program; ADMIT Internal Medicine
PROC: 5A09357 Assistance with Respiratory Ventilation, Less than 24 Consecutive Hours, Continuous Positive Airway Pressure (ICD-10-PCS; principal; 2018-08-03)
PROC: 5A09357 Assistance with Respiratory Ventilation, Less than 24 Consecutive Hours, Continuous Positive Airway Pressure (ICD-10-PCS; 2018-08-05)
PROC: 5A09357 Assistance with Respiratory Ventilation, Less than 24 Consecutive Hours, Continuous Positive Airway Pressure (ICD-10-PCS; 2018-08-06)
DX: A41.9 Sepsis, unspecified organism (principal); J96.21 Acute and chronic respiratory failure with hypoxia; N17.0 Acute kidney failure with tubular necrosis; J18.1 Lobar pneumonia, unspecified organism; E43 Unspecified severe protein-calorie malnutrition; D68.9 Coagulation defect, unspecified; J45.901 Unspecified asthma with (acute) exacerbation; E78.5 Hyperlipidemia, unspecified; R91.1 Solitary pulmonary nodule; I35.1 Nonrheumatic aortic (valve) insufficiency; I25.10 Atherosclerotic heart disease of native coronary artery without angina pectoris; E66.9 Obesity, unspecified; I48.0 Paroxysmal atrial fibrillation; E03.9 Hypothyroidism, unspecified; I11.0 Hypertensive heart disease with heart failure; I50.9 Heart failure, unspecified; R65.20 Severe sepsis without septic shock; E83.41 Hypermagnesemia; J43.9 Emphysema, unspecified; I48.2 Chronic atrial fibrillation; Z99.81 Dependence on supplemental oxygen; I25.2 Old myocardial infarction; Z91.81 History of falling; Z87.891 Personal history of nicotine dependence; Z79.01 Long term (current) use of anticoagulants; Z79.82 Long term (current) use of aspirin; Z79.899 Other long term (current) drug therapy; Z92.3 Personal history of irradiation; Z92.21 Personal history of antineoplastic chemotherapy; Z85.118 Personal history of other malignant neoplasm of bronchus and lung; Z68.31 Body mass index [BMI] 31.0-31.9, adult

== ENCOUNTER 2018-08-13 16:12 | Inpatient (IN) | payer OTHER ==
[2018-08-13] VITALS (7 sets, daily range): BP systolic 95–114; BP diastolic 41–69
[~2018-08-13] VITALS: Ht 160 cm; Wt 78.2 kg
--- NOTE | ~2018-08-13 | PR ---
[place], [place] [facility]GRESS NOTE [id number] UN[facility] #: [id number] ROOM: [facility]- DOCTOR: DOUGIE BARAJAS MD BIRTHDATE: [birth year] DOS: 08/17/2018 SUBJECTIVE: The nurse had called me earlier. She was on amiodarone 200 b.i.d., but her blood pressure is running rather low and her heart rate was "pretty good." She was in and out of atrial fibrillation. Amiodarone was discontinued. She has marked shortness of breath and is on high flow oxygen. She has no chest pain, just feels weak and tired. PHYSICAL EXAMINATION: GENERAL: Revealed the patient who is obese, very tachypneic. She is on high flow oxygen. Central venous pressure is 6 cm of water and no air exchange on the left side, the right-sided crackles are more than a couple of days ago. EXTREMITIES: She has no edema in the lower extremities. Monitor shows atrial fibrillation with ventricular rate in the 80s and 90s, systolic pressure in the 90s. IMPRESSION: 1. This patient probably has septic shock from lung infection. She is on inotropic support to prop up blood pressure. 2. Right lung is totally dagoberto out with the pneumonia and pneumonia is extending into the right lung. 3. Monitor shows atrial fibrillation with controlled ventricular rate. 4. This patient has extensive pneumonia of her lungs and she is hemodynamically unstable. Prognosis is poor. Amiodarone needs not to be started unless she has rapid rate and it cannot be controlled. She is off negative chronotropic drugs as well. DOUGIE BARAJAS MD CM:PNTRANS [id number] DOUGIE BARAJAS MD 08/18/18 0605 interface
--- NOTE | ~2018-08-13 | PR ---
[place], [place] PROGRESS NOTE [facility] [id number] UNIT #: [id number] ROOM: [facility]- DOCTOR: KAMI RIZO MD,GUILLERMINA BIRTHDATE: [birth year] DOS: 08/15/2018 SUBJECTIVE: The patient remains comfortable at this morning of assessment was noted. Shortness of breath has been noted. Temperature elevation as 102 degrees Fahrenheit yesterday afternoon. The patient has a culture done. The patient started on antibiotics. She was also noted with hypotension yesterday as well, and was started on Moreno-Synephrine by the Cardiology Services, Dr. Heck. She has been currently getting 50 mcg per kilogram per minute. The patient infusion of the Moreno-Synephrine. The patient has been noted comfortable at this time this morning of assessment. She does have some cough without sputum expectoration, also noted with edema as well. She has not been noted any symptoms of chest pain, fever or chills. No symptoms of hemoptysis reported. General weakness and fatigue were reported. Denies symptoms of headache or diplopia. Denies symptoms of nausea, vomiting or diarrhea. OBJECTIVE: VITAL SIGNS: For the patient recorded a T-max of 102 degrees Fahrenheit. The patient later noted afebrile. Respiratory was recorded as 18-20. Heart rate 64-74. Blood pressure was recorded as 72/45 as lowest blood pressure and this morning the patient's blood pressure recorded as 112/52. HEENT: Examination shows head was atraumatic. Eyes nonicterus. NECK: Supple. CARDIOVASCULAR: S1, S2 audible. CHEST: Decreased breaths are noted in the lungs bilaterally, more decreased on the left than the right side. Scattered crackles. There was no wheezing heard. ABDOMEN: Soft, nontender. Bowel sounds present. EXTREMITIES: Shows mild edema. MUSCULOSKELETAL: Without any acute deformities. CENTRAL NERVOUS SYSTEM: The patient was noted in generally intact. DIAGNOSTIC DATA: The chest x-ray that was done this morning was reviewed personally from the PACS images. The chest x-ray was noted with findings of increased opacification of the left lung with superimposed acute infiltration or pulmonary edema picture was suspected. CMP this morning has a BUN 18, creatinine 1.20. Potassium was noted severely decreased at 2.3. CO2 was 35. Total bilirubin 1.1. The blood culture on 08/13/2018, showed no bacterial growth. CBC that was done on 08/15/2017, WBC count of 14.2, hemoglobin 9.5, hematocrit was 29.8, platelet count was normal 289,000. IMPRESSION: 1. The patient with acute respiratory failure, multifactorial with chronic hypoxic respiratory failure, currently noted on Optiflow oxygen supplementation nasal cannula and hypoxemia. 2. Fever. The patient with possibly superimposed acute bacterial infection was considered. 3. Congestive heart failure, pulmonary edema picture was also noted. 4. Hypertension, multifactorial as well. At this time, treated with vasopressor therapy. 5. History of known lung cancer, which is inoperable, treated with radiation and chemotherapy. [place], [place] PROGRESS NOTE NAME: ALKA BETH Dalia UNIT #: [id number] ROOM: [facility] DOCTOR: GUILLERMINA DELGADILLO MD BIRTHDATE: [birth year] PLAN OF MANAGEMENT: No changes in the plan of care at this time needs to be done. Continue with the vasopressors. Oxygen supplementation, bronchodilator use of BiPAP to support the respiratory failure as well as needed. Usual care. Care for diuresis. vasopressor to maintain mean arterial pressure of 65 or greater. Usual care, other supportive plan of management care, plan of therapies and other care. Usual treatments. GUILLERMINA MCCLURE MD CM:PNKRYSTIAN [id number] GUILLERMINA RIZO MD 08/15/18 1447 interface
--- NOTE | ~2018-08-13 | PR ---
[place], [place] PROGRESS NOTE [id number] UNIT #: [id number] ROOM: [facility]- DOCTOR: KAMI RIZO MD,GUILLERMINA BIRTHDATE: [birth year] DOS: 08/17/2018 The patient was seen and examined on the date of 08/17/2018. ____ This would be pulmonary addendum note patient as well. The patient independently seen and examined, [id number] encounter, history was confirmed. Physical examination performed. Labs reviewed. Note done by the medical claims processor was approved as well. The assessment and management of today was personally completed. SUBJECTIVE: The patient has been using oxygen supplementation Optiflow oxygen noted with nocturnal hypoxia. The patient continue to remains with hypertension using the vasopressors as Levophed ____ current body weight. She has been noted with some cough, but there was no sputum expectoration. Denies any acute chest pain. She was noted with intermittent fever currently treated with intravenous antibiotic. She has been currently getting 3 different antibiotics at this time; however, the culture were noted nonrevealing to find the exact infection at the present time. She has not been noted any symptoms of pain or edema of the lower extremity. Code status has been discussed with the patient at this time. She was not making a final decision about the change in code status, but stating that she may not want to be intubated and started on mechanical ventilation. However, the code status changes of the patient were not finalized. She was encouraged to discuss with the family members about the change in code status. OBJECTIVE: GENERAL: The patient has been currently using Optiflow oxygen supplementation nasal cannula. VITAL SIGNS: Temperature noted at 99.4 degree Fahrenheit to low-grade fever at that time. The respiratory rate ranged between 21-24. The heart rate for the patient was recorded 98-97. The blood pressure recorded as 70/37-100/57 at 0900 hours. The pulse oxygen saturation was recorded with Optiflow oxygen supplementation up to 40% of oxygen with 60% was noted as 96% saturation. HEENT: Head was atraumatic. Eyes nonicterus. NECK: Supple. CARDIOVASCULAR: S1, S2 audible. LUNGS: Absent breath sounds on the left chest to auscultation. Crackles noted of the right lung. ABDOMEN: Soft and nontender. Bowel sounds present. EXTREMITIES: Noted without acute edema. MUSCULOSKELETAL: Without any acute deformities. CENTRAL NERVOUS SYSTEM: The patient's cranial nerves 2-12 intact. LABORATORY DATA: CMP that was done this morning as a normal BUN and creatinine. Bilirubin 1.2. Chest x-ray this morning noted comfortable atelectasis persisted on the left side with infiltration noted on the right side. The CBC this morning, WBC count of 13.5, hemoglobin 9, hematocrit 28.4, platelet count 252,000. The urine for legionella antigen were reported as negative results. Urine strep antigen noted negative. [place], [place] PROGRESS NOTE NAME: ALKA BETH UNIT #: [id number] ROOM: [facility] DOCTOR: KAMI RIZO MD,GUILLERMINA BIRTHDATE: [birth year] IMPRESSION: 1. The patient with acute pneumonia, multilobar with severe acute on chronic hypoxemic respiratory failure. 2. History of lung cancer noted inoperable, treated with radiation and chemotherapy with calcification and shift of the mediastinum to the right with addition of atelectasis noted in the left lung secondary to mucus impaction, infection or other etiologies. 3. Intermittent fever at this time was also noted. The organism were noted nonrevealing at this time with exact etiology of infection cannot be determined. Overall, severe debility noted as well. PLAN OF TREATMENT: Discussed with the patient about code status. The change of code status to be made according to the patient and family wishes. Overall prognosis of the patient remains guarded at the present time. Continue the BiPAP, oxygen supplementation, other therapy, plan and management. Additional treatment changes will be ordered based on the progression of the illness. Supportive care. GUILLERMINA MCCLURE MD CM:PNTRANS [id number] GUILLERMINA RIZO MD 08/19/18 0132 interface
--- NOTE | ~2018-08-13 | EKG ---
[place], [place] ELECTROCARDIOGRAM REPORT NAME: ALKA BETH UNIT #: [id number] ROOM: [facility] DOCTOR: NBA DRAFT REPORT BIRTHDATE: [birth year] [facility] Test Date: 2018-08-13 Test Time: 19:09:41 Pat Name: ALKA BETH Department: Room: [facility] Gender: F Membership Sales Advisor: Katelynn Portillo : 1945 Requested By: LEX ENCISO Order Number: [id number] Reading MD: Ele Rangel MD Measurements Intervals [place] Rate: 76 P: SC: QRS: 210 QRSD: 104 T: 222 QT: 464 QTc: 522 Interpretive Statements Atrial fibrillation Markedly posterior QRS axis Low voltage, precordial leads Repol abnrm suggests ischemia, diffuse leads Prolonged QT interval Compared to ECG 08/03/2018 09:02:42 Posterior QRS axis now present Early repolarization now present Possible ischemia now present Prolonged QT interval now present Ectopic atrial rhythm no longer present Left-axis deviation no longer present Electronically Signed On 08-14-2018 10:32:01 PDT by Ele Rangel MD CM:EKGRPT:ELECTROCARDIOGRAM REPORT 08 1032 LEX ARANGO DRAFT REPORT LEX ENCISO M.D.
--- NOTE | ~2018-08-13 | CON ---
[place], [place] REPORT OF CONSULTATION NAME: ALKA BETH UNIT #: [id number] ROOM: [facility] DOCTOR: CHAYO SCOTTMULUGETA BIRTHDATE: [birth year] DOS: REASON FOR CONSULTATION: Increasing shortness of breath and some atypical chest discomfort. HISTORY OF PRESENT ILLNESS: The patient is a 73-year-old female with a history of known coronary artery disease, recently discharged from the hospital on 08/07/2018, being treated for pneumonia and acute chronic respiratory failure, admitted with increasing shortness of breath, also had some left-sided precordial chest discomfort. EKG shows atrial fibrillation, no acute ST elevation. Echocardiogram done recently showed a good ejection fraction and diminished compliance. No significant valvular abnormalities. Right now, she is chest pain free. She is being adequately diuresed and feeling better. PAST MEDICAL HISTORY: Chronic atrial fibrillation, respiratory failure, COPD, lung cancer, obesity, pleural effusion. PAST SURGICAL HISTORY: Lung surgery, lower colectomy and polypectomy. SOCIAL HISTORY: Denies any alcohol abuse. Former smoker. FAMILY HISTORY: Noncontributory. HOME MEDICATIONS: Amiodarone 200 b.i.d., aspirin, atenolol, diltiazem, Lasix, rivaroxaban. REVIEW OF SYSTEMS: CONSTITUTIONAL: No fever, no chills. HEENT: No visual disturbances or hearing problems. RESPIRATORY: Does have some dysphagia. CARDIOVASCULAR: As per HPI. GASTROINTESTINAL: No nausea, no vomiting. RESPIRATORY SYSTEM: Does have significant shortness of breath on exertion. NEUROLOGIC: No syncope. PHYSICAL EXAMINATION: VITAL SIGNS: Blood pressure today is 98/53. NECK: Elevated jugular venous distention. LUNGS: Diminished breath sounds. HEART: Sounds are irregularly irregular. ABDOMEN: Soft, nontender. NEUROLOGICAL: Stable. LABORATORY DATA: Hemoglobin 9.3, hematocrit 29.6. Sodium 141, potassium 3.8 and creatinine is 1.4. I's and O's, she is negative, 980. IMPRESSION: The patient admitted with increasing shortness of breath, exacerbation of diastolic heart failure, atypical chest discomfort and chronic respiratory failure, hypertension, lung cancer and chronic renal insufficiency. [place], [place] REPORT OF CONSULTATION NAME: ALKA BETH UNIT #: [id number] ROOM: [facility] DOCTOR: CHAYO SCOTT,MULUGETA BIRTHDATE: [birth year] RECOMMENDATIONS: Continue with the present medications as ordered. The patient continues to be in atrial fibrillation. Continue anticoagulation. Continue the IV Bumex. Monitor the heart rate and blood pressure closely. The patient has hemoglobin drop 9.3. Monitor the H and H and make sure that there is no evidence of GI bleed and we will follow up. MULUGETA DOMINGO MD CM:CONSTR:REPORT OF CONSULTATION 0706 08/14/18 1133 interface
--- NOTE | ~2018-08-13 | CON ---
[place], [place] REPORT OF CONSULTATION NAME: [id number] UNIT #: [id number] ROOM: [facility] DOCTOR: GUILLERMINA DELGADILLO MD BIRTHDATE: [birth year] DOS: 08/14/2018 PULMONARY CONSULTATION, EVALUATION AND MANAGEMENT NOTE REQUESTING PHYSICIAN: Hospitalist Service REASON FOR CONSULTATION: Assessment of symptoms of shortness of breath and respiratory failure. HISTORY OF PRESENT ILLNESS: This is a 73-year-old white female patient, who has been noted with history of COPD and history of lung cancer, which is inoperable, treated with radiation chemotherapy in the past. She has been recently admitted to the hospital and treated with acute on chronic hypercapnic hypoxic respiratory failure and noted with acute pneumonia as well with atelectasis, which was noted in the left side, which improved with conservative medical management. The patient was treated and discharged home recently from the hospital for further care. The patient was discharged home on 08/07/2018. The patient presented back to the hospital, stating symptoms of having increased shortness of breath occurring at home for the last 2 days, which have been noted gradually worsened. She denies symptoms of chest pain with that. She does have mild cough without any sputum expectoration. Denies symptoms of hemoptysis. She also started having pain to the left side of the chest, which was noted with exertion, nonradiating, mild to moderate in severity and resolved later on. The patient was also complaining of orthopnea symptoms as well. REVIEW OF SYSTEMS: CONSTITUTIONAL: Fatigue and tiredness reported. Denies symptoms of fever or chills. EYES: Denies any burning, redness, or tenderness. EARS, NOSE, THROAT SYMPTOMS: Denies sore throat, hoarseness, otalgia, or epistaxis. CARDIOVASCULAR: Denies anginal pain, edema, or pain of the lower extremities at the present time. GASTROINTESTINAL: Denies dysphagia, nausea, vomiting, diarrhea, abdominal pain, hematemesis, melena, or hematochezia. GENITOURINARY: Denies dysuria, suprapubic pain, hematuria, urinary hesitancy, or incontinence. MUSCULOSKELETAL: Denies acute joint pain, redness or tenderness or deformities. CENTRAL NERVOUS SYSTEM: Denies dizziness, headache, diplopia, or syncopal episodes. Remaining systems were reviewed with the patient, they were noted all negative. PAST MEDICAL HISTORY: Noted as: 1. Chronic hypoxic respiratory failure, use of oxygen supplementation, last time discharged home was on 5 liters nasal cannula. 2. History of COPD. 3. Bronchial asthma. 4. Essential hypertension. 5. Coronary artery disease. [place], [place] REPORT OF CONSULTATION NAME: ALKA BETH UNIT #: [id number] ROOM: [facility] DOCTOR: KAMI RIZO MD,GUILLERMINA BIRTHDATE: [birth year] 6. Congestive heart failure, diastolic dysfunction. 7. Permanent atrial fibrillation history as well. 8. Hypothyroidism. 9. Inoperable nonsmall cell lung cancer involving left upper lobe, treated with radiation and chemotherapy several years ago. PAST SURGICAL HISTORY: Noted needle aspiration biopsy of the lung mass. SOCIAL HISTORY: The patient is , lives at home. Denies history of alcohol use or illicit drug use. Tobacco use was noted one pack of cigarettes a day until 2011 when the diagnosis of lung cancer was established. FAMILY HISTORY: Noted both parents , father from complication of MVA and mother at old age. CURRENT MEDICATIONS: Administered actively on this hospitalization are Requip, Xarelto, Lipitor, Cardizem CD, vitamin D, amiodarone, atenolol, aspirin, thyroid pill, DuoNeb, and some other p.r.n. meds. DRUG ALLERGIES: Noted as no known drug allergies. PHYSICAL EXAMINATION: GENERAL: This is a 73-year-old female who has been currently noted without any distress this morning of assessment in the Intensive Care Unit as the patient was admitted to the ICU for this admission. Height recorded by the nursing staff with height of 5 feet 3 inches, weight of 175 pounds, BMI 31. VITAL SIGNS: Which were recorded showed the temperature noted as normal, respiratory rate of 18-20, blood pressure of 86/40 to 101/50. Pulse oxygen saturation was recorded as 96% saturation on 100% nonrebreather mask. The pulse oxygen saturation was 84% noted on nasal cannula. HEENT: Shows head was atraumatic, eyes nonicterus. NECK: Supple. CARDIOVASCULAR: S1 and S2 audible. LUNGS: The patient was noted with decreased breath sounds in the lungs bilaterally with scattered crackles without any wheezing. ABDOMEN: Soft. Mild to moderate obesity. Bowel sounds present. EXTREMITIES: Noted without any edema this morning. MUSCULOSKELETAL: Without any acute deformities. CENTRAL NERVOUS SYSTEM: Cranial nerves 2-12 intact without any focal deficit. LABORATORY DATA: Laboratory data assessed on this admission, troponin was noted normal on admission. CBC that was done on admission yesterday, WBC count 13.4, hemoglobin 11.6, hematocrit 374,000. INR 1.5, PTT of 32. CMP that was done with BUN 29, creatinine 1.73, glucose 145, potassium 2.8, CO2 was 34. Arterial blood gas yesterday, pH of 7. 54, pCO2 33, pO2 43 on 40% Venturi mask. Lactic acid 2.3, followup 1.5. CMP that was done this morning, BUN 25, creatinine 1.46, CO2 was 40, chloride of 96. Arterial blood gas that was done this morning, pH of 7.51, pCO2 42, pO2 of 59.3. CBC of this morning, WBC count of 9.9, hemoglobin 9.3, platelet count normal. INR is 1.3 this morning. She has ultrasound of the lower extremity that was completed this morning, reported [place], [place] REPORT OF CONSULTATION NAME: ALKA BETH UNIT #: [id number] ROOM: [facility] DOCTOR: KAMI RIZO MD,[facility] BIRTHDATE: [birth year] without any evidence of deep venous thrombosis. The chest x-ray that was done on admission was noted with chronic changes in the left lung and in addition to that, the patient is noted with increased infiltration with interstitial edema in the left lower lobe and most part of the right lung as well, possible superimposed consolidation cannot be completely excluded. IMPRESSION: 1. The patient has been currently admitted to the hospital with acute on chronic severe hypoxemic respiratory failure, related to acute congestive heart failure is very likely cause with possible diastolic dysfunction. 2. The patient with known history of inoperable left lung cancer, noted without any recurrence so far from previous investigation including PET scan completed in May 2018. 3. The patient with chronic obstructive pulmonary disease that seems to be resolving. 4. Past treatment for acute pneumonia, completion of antibiotic for pneumonia as well during her last hospitalization as outpatient. 5. History of mild obesity and other medical illnesses. PLAN OF TREATMENT: Continue aggressive diuretics at this time. Discontinue antibiotic with de-escalation after the culture results available, blood or other parts of the body accordingly. Bronchodilator to be continued. Continue use of BiPAP as well. Other treatment, plan of management, and additional changes will be made for based on progression of the illness. Usual care. Other supportive plan of management. BiPAP to help support the respiratory status as well. Cardiology consultation is already performed, we will follow the recommendation to maximize the management of congestive heart failure. The patient does not seem to have an acute flareup or recurrence of chronic obstructive pulmonary disease requiring this hospitalization, this hospitalization has occurred because of the acute congestive heart failure onset. GUILLERMINA MCCLURE MD CM:CONSTR:REPORT OF CONSULTATION 1252 08/15/18 0206 interface
--- NOTE | ~2018-08-13 | PR ---
[place], [place] PROGRESS NOTE [id number] UNIT #: [id number] ROOM: [facility] DOCTOR: DOUGIE BARAJAS MD BIRTHDATE: [birth year] DOS: 08/15/2018 SUBJECTIVE: I am seeing this patient on behalf of Dr. Heck. She is alert, oriented. She has high flow oxygen and is still tachypneic. She has no chest pain or palpitation. She coughed a couple of times today. Once she coughed up blood. She has reduced appetite and no chills. PHYSICAL EXAMINATION: GENERAL: The patient who is alert. Temperature is 98.4 degrees. VITAL SIGNS: Pulse is 100 and irregular, blood pressure 95/51, 103/56. Central venous pressure is +8 cm of water. CARDIOVASCULAR: Auscultation with no murmur. There is no edema at all in the lower extremities. RESPIRATORY: She is tachypneic. Fine crackles are audible on the right side with mildly reduced breath sounds. Some wheezes are audible on the left side with extremely reduced breath sounds. No rub was present. Monitor now shows normal sinus rhythm. Earlier today, she was in atrial fibrillation. IMPRESSION: 1. Paroxysmal atrial fibrillation. She is in normal sinus rhythm now. Amiodarone should be given. I do not think it is going to drop her blood pressure that much. 2. Hypotension. She is on Levophed support. This may be septic shock. She clearly is not volume depleted. 3. Anemia. No new recommendation other than try to give her amiodarone, should she does not revert to atrial fibrillation. DOUGIE BARAJAS MD CM:PNTRANS [id number] DOUGIE BARAJAS MD 08/16/18 0129 interface
--- NOTE | ~2018-08-13 | EKG ---
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: Katelynn Portillo : 1945 Requested By: LEX ENCISO Order Number: [id number] Reading MD: Ele Rangel MD Measurements Intervals [place] Rate: 84 P: [place]: QRS: 259 QRSD: 105 T: 204 QT: 344 QTc: 407 Interpretive Statements Atrial fibrillation Right superior axis Low voltage, precordial leads Nonspecific repol abnormality, diffuse leads Compared to ECG 08/03/2018 09:02:42 Right superior axis now present Early repolarization now present Ectopic atrial rhythm no longer present Left-axis deviation no longer present Electronically Signed On 08-14-2018 10:29:15 PDT by Ele Rangel MD CM:EKGRPT:ELECTROCARDIOGRAM REPORT [id number] 1029 LEX ARANGO DRAFT REPORT LEX ENCISO M.D.
--- NOTE | ~2018-08-13 | PR ---
[place], [place] PROGRESS NOTE NAME: ALKA BETH [facility] #: [id number] UNIT #: [id number] ROOM: [facility] DOCTOR: KAMI RIZO MD,GUILLERMINA BIRTHDATE: [birth year] DOS: 08/19/2018 SUBJECTIVE: The patient was noted comfortable at this time. Noticed small amount of hemoptysis again last night, but not noted any massive hemoptysis. Denies symptoms of fever or chills, started empirical antifungal therapy, the patient with oral antifungal treatment. The patient has not been noted symptoms of chest pain. Shortness of breath was noted. Only short brief period of oxygen supplementation with the Optiflow as tolerated, but noted with hypoxia. Otherwise, the patient has been currently getting oxygen supplementation 100% on BiPAP at this time. Noted to be comfortable. Denies symptoms of chest pain, fever or chill. Noted general weakness and fatigue, low-grade fever noted. REVIEW OF SYSTEMS: Limited, otherwise ____ weakness and fatigue. OBJECTIVE: VITAL SIGNS: Temperature of 100.3 degrees Fahrenheit, respiratory rate 28, heart rate 117, blood pressure 108/71-59 with use of the Levophed. The pulse oxygen saturation 96%, saturation 100% on the BiPAP. HEENT: Examination shows head was atraumatic. Eyes nonicterus. NECK: Supple. CARDIOVASCULAR: S1, S2 audible. LUNGS: Noted decreased breath sounds in the lungs bilaterally, greater on the right than the left side. No wheezing. No crackles. ABDOMEN: Soft, nontender. EXTREMITIES: Mild edema. MUSCULOSKELETAL: Without acute deformities. SKIN: No lesions or rashes. CENTRAL NERVOUS SYSTEM: Intact. LABORATORY DATA: The patient's CBC: WBC count of 15.8 today, hemoglobin 9, and platelet count was normal at 235,000. CMP of this morning, BUN 8, creatinine was normal. Bilirubin 1.1. Albumin 1.4. IMPRESSION: 1. Stable respiratory status was noted at the present time with acute pneumonia. 2. Atelectasis of the left lung with history of past lung cancer treated with radiation therapy as well and chemotherapy in the past several years ago. Persistent severe acute hypoxemic respiratory failure. Possibility of fungal infection such as aspergillosis can be excluded. PLAN OF MANAGEMENT: Continue current plan of management. Prognosis of the patient remains guarded. Continue the BiPAP and management according to advance directives. The patient does not wish to be intubated. Continue vasopressor therapy for the hypotension management. Supportive care. [place], [place] PROGRESS NOTE NAME: ALKA BETH UNIT #: [id number] ROOM: [facility] DOCTOR: GUILLERMINA DELGADILLO MD BIRTHDATE: [birth year] GUILLERMINA MCCLURE MD CM:PNTRANS [id number] GUILLERMINA RIZO MD 08/19/18 2020 interface
--- NOTE | ~2018-08-13 | PR ---
[place], [place] PROGRESS NOTE [id number] UNIT #: [id number] ROOM: [facility] DOCTOR: AWILDA HENSLEY DO BIRTHDATE: [birth year] DOS: 08/16/2018 PULMONARY PROGRESS NOTE SUBJECTIVE: The patient is resting comfortably in bed at this time. The patient states that she is still short of breath. The patient had a T-max overnight of 100.9. The patient's blood pressure remains unstable and is requiring pressors. The patient had a central line placed last night. The patient states that she feels a little better today. OBJECTIVE: VITAL SIGNS: Temperature is currently 98.5, however, the T-max of 100.9 overnight, pulse 94, respiratory rate 18, blood pressure is ranging from around 90 systolic to 50 diastolic. Currently, her blood pressure is 89/53. HEENT: Normocephalic, atraumatic. Eyes nonicteric. NECK: Supple, nontender, trachea midline. CARDIOVASCULAR: S1, S2 audible. CHEST: Decreased breath sounds noted in the lungs bilaterally, more decreased on the left. Scattered crackles bilaterally. ABDOMEN: Soft, nontender. Bowel sounds are present. EXTREMITIES: Shows trace bilateral lower extremity edema without any clubbing or cyanosis. MUSCULOSKELETAL: Without any acute deformities. CENTRAL NERVOUS SYSTEM: Grossly intact. No focal deficits. LABORATORY DATA: The patient had a white blood cell count of 11.0 this morning, hemoglobin 9.2, which is stable over the past 3 days. Hematocrit 29.1, which is once again stable over the past 3 days. Platelet count is 239, sodium 137, potassium 3.9, chloride 96, carbon dioxide 36, BUN 13, creatinine 1.02, calcium 8.1, T-bili 1.1. AST and ALT are within normal limits at 14 and 15 respectively. Total protein 5.8 with albumin of 1.9. The patient had a urinary culture analysis on the that was normal. MICROBIOLOGY: There has been no growth of any of the bacteria on blood cultures. IMAGING: The patient had a 2-view chest x-ray yesterday morning that showed no significant interval change. The patient had a chest CT yesterday, which showed worse right lower lobe pneumonia. The patient also had another chest x-ray yesterday after the right IJ was placed showed the wire was in good position. IMPRESSION: 1. Acute respiratory failure, multifactorial, chronic hypoxic respiratory failure. The patient is on high flow nasal cannula right now. 2. Fever, most likely from his pneumonia. 3. Congestive heart failure, pulmonary edema on admission, though it appears better now. 4. Hypotension, at this time it can be an element of cardiac and an element of septic picture. 5. Hypokalemia. Continue to replace potassium. [place], [place] PROGRESS NOTE NAME: ALKA BETH UNIT #: [id number] ROOM: [facility] DOCTOR: AWILDA HENSLEY DO BIRTHDATE: [birth year] 6. Severe protein calorie malnutrition. The patient should be supplemented with Ensure. 7. History of known lung cancer, history of radiation and chemotherapy, hence changes seen on the left lung. PLAN: At this time, the patient will continue on antibiotics, broad spectrum with vancomycin, Levaquin, and Zosyn. Continue with vasopressors, agree with using Levophed. The patient is being followed by Dr. Sandy and Dr. Heck. Continue use of BiPAP for respiratory support. Continue to diurese as needed. At this time, the goal MAP would be 60-65. The patient will be medically managed for now. Other changes will be based on progression of illness. Miguel A Hensley DO GUILLERMINA MCCLURE MD CM:RONNIE [id number] AWILDA HENSLEY DO 08/17/18 0250 interface
--- NOTE | ~2018-08-13 | EKG ---
[place], [place] ELECTROCARDIOGRAM REPORT NAME: ALKA BETH UNIT #: [id number] ROOM: [facility] DOCTOR: NBA DRAFT REPORT BIRTHDATE: [birth year] [facility] Test Date: 2018-08-13 Test Time: 22:03:39 Pat Name: ALKA BETH Department: Room: [facility] Gender: F [employer] Operator: Katelynn Portillo : 1945 Requested By: LEX ENCISO Order Number: [id number] Reading MD: Ele Rangel MD Measurements Intervals [place] Rate: 74 P: [place]: QRS: -20 QRSD: 94 T: 265 QT: 563 QTc: 625 Interpretive Statements Atrial fibrillation Low voltage, extremity leads Posterior infarct, acute Prolonged QT interval Compared to ECG 08/03/2018 09:02:42 Myocardial infarct finding now present Prolonged QT interval now present Ectopic atrial rhythm no longer present Left-axis deviation no longer present Electronically Signed On 08-14-2018 10:35:25 PDT by Ele Rangel MD CM:EKGRPT:ELECTROCARDIOGRAM REPORT 1035 LEX ARANGO DRAFT REPORT LEX ENCISO M.D.
--- NOTE | ~2018-08-13 | PR ---
[place], [place] PROGRESS NOTE [id number] UNIT #: [id number] ROOM: [facility] DOCTOR: KAMI RIZO MD,GUILLERMINA BIRTHDATE: [birth year] DOS: 08/18/2018 SUBJECTIVE: The patient was seen and examined. The patient was noted essentially same respiratory status this morning, but noted with moderate yesterday couple of times, which has been resolved later on. She was given treatment of racemic epinephrine course, noted per the patient. She has been continued on vasopressor therapy at this time with hypertension noted and increase of the vasopressor therapy, maximize addition of vasopressor, was started for the hypertension management. She was noted awake and alert this morning. Some family members at the bedside, in the room with the patient. She has not reported any symptoms of chest pain, fever or chills. The repeat culture of the sputum was ordered yesterday noted normal juan. Gram stain, moderate white blood cells, few gram-positive cocci in clusters. The patient denies symptoms of headache or diplopia. Denies symptoms of nausea, vomiting, diarrhea, abdominal pain, hematemesis, melena, or hematochezia. Remaining systems were reviewed with there was noted limited, but negative. PHYSICAL EXAMINATION: VITAL SIGNS: For the patient recorded this morning, the patient's temperature noted a T-max of 101.3 degrees Fahrenheit yesterday evening. The respiratory rate was recorded at 21-22. The blood pressure ranging between 30/60. Pulse oxygen saturation recorded as 94% saturation on Optiflow of oxygen. HEAD, EYES, EARS, NOSE, AND THROAT: Head was atraumatic. Eyes nonicterus. NECK: Supple. CARDIOVASCULAR SYSTEM: S1, S2 audible. LUNGS: Noted as a previous decreased breath sounds on the left lung with crackles in the right side. ABDOMEN: Soft, nontender. Bowel sounds present. EXTREMITIES: Noted without acute edema. MUSCULOSKELETAL: Without acute deformities. CENTRAL NERVOUS SYSTEM: Noted general weakness, but there were no focal deficits. LABORATORY DATA: CMP this morning, BUN normal, creatinine was normal. Albumin 1.7. The culture of the sputum, moderate white blood cells, few gram-positive cocci in pairs and clusters, normal juan. Final culture results were pending. CBC: WBC count 15.2, hemoglobin 9.1, hematocrit 30.0, platelet count 248,000, 92% segmented neutrophils, 2% lymphocytes. IMPRESSION: 1. The patient's hemoptysis, which has resolved. 2. Intermittent fever prospect intravenous antibiotic, possible continuation of the fungal infection such aspergillosis can be completely excluded. 3. History of known lung cancer, which has been treated previously. 4. Atelectasis, left lung, superimposed previous treatment for resulting in calcification of the lung parenchyma and the pleural fluid from past radiation therapy. PLAN OF MANAGEMENT: Monitor respiratory status. Code status per primary care [place], [place] PROGRESS NOTE NAME: ALKA BETH UNIT #: [id number] ROOM: [facility] DOCTOR: KAMI RIZO MD,GUILLERMINA BIRTHDATE: [birth year] physician for hypertension. Continue vasopressor therapy to maintain a mean arterial pressure of 65 or greater. Empirical use of the Vfend. Started empirically at this time for the suspicion invasive aspergillosis. Follow the culture results. Sputum culture also to be checked for the fungal infection. Other therapy, plan of management, additional treatment changes will be done based on progression of the illness. Overall prognosis of the guarded at the present time. GUILLERMINA MCCLURE MD CM:PNTRANS 1501 28 GUILLERMINA RIZO MD 08/18/181927 interface
--- NOTE | ~2018-08-13 | PR ---
[place], [place] PROGRESS NOTE NAME: ALKA BETH [facility] #: [id number] UNIT #: [id number] ROOM: [facility] DOCTOR: KAMI RIZO MD,GUILLERMINA BIRTHDATE: [birth year] DOS: 08/16/2018 The patient was independently seen and examined, [id number] encounter. History was confirmed. Physical examination performed. Labs reviewed. Note done by the medical recruiter was approved. The assessment and management at today's visit was personally completed. SUBJECTIVE: The patient was noted comfortable at this time, resting in the bed this morning. She has been noted another low-grade fever this morning. She has been continuing the antibiotics. Levaquin was also added this morning. She has not reported symptoms of hemoptysis. Shortness of breath noted decreased. Stated that she has been feeling improvement in the overall respiratory status this morning. Denies symptoms of chest pain. Denies symptoms of pain of the lower extremities. Denies symptoms of headache or diplopia. General weakness and fatigue were noted partially decreased as per the patient. Remaining systems were reviewed and they were noted all negative. OBJECTIVE: VITAL SIGNS: For the patient which were recorded normal temperature to low-grade fever was recorded as 99.8 degree Fahrenheit to 100.9 degrees Fahrenheit, respiratory rate noted 17/20, heart rate of 85-99, blood pressure 100/60-74/40, currently noted vasopressor Levophed. Pulse oxygen saturation recorded on 8 liters high flow nasal cannula 98% saturation on the BiPAP or Optiflow intermittent noted, pulse oxygen 92-98% saturation with 60% oxygen. HEENT: Examination shows head was atraumatic. Eyes nonicterus. NECK: Supple. CARDIOVASCULAR: S1, S2 is audible. LUNGS: Noted decreased breath sounds. ABDOMEN: Soft, nontender, bowel sounds present. EXTREMITIES: Noted without any acute edema. MUSCULOSKELETAL: Without acute deformities. CENTRAL NERVOUS SYSTEM: Noted to be intact. LABORATORY DATA: CT scan of the chest that was ordered by the primary care physician yesterday noted evidence of pulmonary infiltration involving the right lung with chronic atelectasis of the left lung superimposed increased atelectasis. Calcification of the left upper lung in the pleura and in the parenchyma noted secondary to past radiation therapy. Blood culture was noted without any bacterial growth. BMP this morning, BUN normal, creatinine was normal. Sodium 134. CBC this morning has WBC count 11.0, hemoglobin 9.2, hematocrit 29.1, platelet count of 139,000. IMPRESSION: The patient with acute pneumonia in the lungs noted bilaterally, currently treated with broad-spectrum intervenous antibiotics. Sputum culture noted not expectorating any sputum. Still noted with persistent acute on chronic hypoxemic respiratory failure with hypotension secondary to acute sepsis. PLAN OF MANAGEMENT: Continue broad spectrum intravenous antibiotics. Monitor [place], [place] PROGRESS NOTE NAME: ALKA BETH UNIT #: [id number] ROOM: [facility] DOCTOR: KAMI RIZO MD,GUILLERMINA BIRTHDATE: [birth year] culture results. Conservative treatment will be continued. ____ code status, the patient does not wish to be intubated. Use of BiPAP with the Optiflow oxygen supplementation will be continued as tolerated to maintain pulse ox 90% or greater. Overall prognosis remains guarded. GUILLERMINA MCCLURE MD CM:PNTRANS [id number] GUILLERMINA RIZO MD 08/17/18 0109 interface
--- NOTE | ~2018-08-13 | PROC NOTE ---
[place], [place] PROCED[id number] #: [id number] ROOM: [facility] DOCTOR: BASHIR STANLEY BIRTHDATE: [birth year] DOS: MODIFIED BARIUM SWALLOW BACKGROUND HISTORY AND MEDICAL HISTORY: The patient is a pleasant 73-year-old female with a primary diagnosis of hypoxia and chronic diastolic congestive heart failure. The patient has a history of COPD, left lung cancer. Her current chest x-ray on 08/13/2018 compared to the most recent and shows increased vascular congestion with pulmonary edema. The patient reports episodes of dysphagia, mostly at night on water, sometimes on food. When she eats, she feels like she is drowning and chokes, especially on liquids at night. The patient denies any weight loss and reports she is eating well at this time. The patient was edentulous, reporting that her dentures are at home. The patient is currently n.p.o. due to concern for dysphagia. METHODS AND MATERIALS: This modified barium swallow was completed in conjunction with radiologist, Dr. Butterfield. The patient was seated upright in a wheelchair and viewed in the lateral plane only. The patient was able to follow commands and independently administered thin liquids via straw approximately 4-5 normal sized bolus amounts, a teaspoon of vanilla pudding coated with barium and a piece of a turkey sandwich coated with barium. ORAL PHASE: The patient presents normal oral phase. She had adequate ability to control form and posteriorly propel a cohesive bolus of all consistencies administered. Her mastication was diagonal vertical. She lateralized the bolus and oral residue pocketing was not of concern or noted. Tongue to palate contact was adequate. PHARYNGEAL PHASE: The patient demonstrates normal pharyngeal phase with a suspected instance of possible very trace transient penetration into the laryngeal vestibule; however, it was adequately cleared and no signs of barium coating are falling down into the laryngeal vestibule were noted on thin liquids. The patient did not penetrate and it was not suspected that she penetrated or aspirated any other consistencies. There was very mild vallecula residue; however, the patient independently used sequential dry swallows throughout the modified barium swallow to clear this to trace amounts. RECOMMENDATIONS AND IMPRESSION: The patient demonstrates normal oral and pharyngeal phases of the swallow. Speech therapy is not recommended at this time and she can tolerate a regular diet with a narrow swallowing compensatory strategies or limitations. Thank you for this referral. [place], [place] PROCEDURE NOTE NAME: KIRITALKA J UNIT #: [id number] ROOM: [facility] DOCTOR: BASHIR STANLEY BIRTHDATE: [birth year] BASHIR STANLEY CM:PROCNOTE:PROCEDURE NOTE [id number] BASHIR STANLEY
--- NOTE | ~2018-08-13 | EKG ---
[place], [place] ELECTROCARDIOGRAM REPORT NAME: ALKA BETH UNIT #: [id number] ROOM: [facility] DOCTOR: NBA DRAFT REPORT BIRTHDATE: [birth year] [facility] Test Date: 2018-08-17 Test Time: 09:12:31 Pat Name: ALKA BETH Department: Room: [place] [address] Gender: F General Production Worker: Angy Payne : 1945 Requested By: SHERWIN GARCIA Order Number: [id number] Reading MD: Maxim Sandy MD Measurements Intervals [place] Rate: 100 P: -85 CT: 127 QRS: -17 QRSD: 92 T: 235 QT: 404 QTc: 522 Interpretive Statements Atrial flutter Low voltage, extremity and precordial leads Repol abnrm suggests ischemia, diffuse leads Prolonged QT interval ST depression V1-V6, suggest anterolateral ischemia Compared to ECG 08/13/2018 22:03:39 Early repolarization now present Possible ischemia now present Electronically Signed On 08-22-2018 7:00:39 PDT by Maxim Sandy MD CM:EKGRPT:ELECTROCARDIOGRAM REPORT 0700 SHERWIN ARANGO DRAFT REPORT SHERWIN GARCIA
[~2018-08-13 16:12] MED LIST changes: +ARMOUR THYROID15 M1 PO; +DILTIAZEM 24HR120 MG PO; +DOXYCYCLINE100 M3 PO; +VITAMIN D35000 UNIT PO
[2018-08-13 16:30] LABS: BASO % 0.1 % (0.0-1.0); EOS % 0.1 % (1.0-4.0); HEMATOCRIT 36.4 % (37.0-47.0); HEMOGLOBIN 11.6 g/dl (12.0-16.0); LYMPH # 0.8 10*3/uL (1.3-4.4); LYMPH % 6.2 % (27.0-41.0); MEAN CELL VOLUME 96.6 fl (81.0-99.0); MEAN CORPUSCULAR HGB 30.8 pg (27.0-31.0); MEAN CORPUSCULAR HGB CONC 31.9 g/dl (33.0-37.0); MEAN PLATELET VOLUME 9.8 fl (9.6-12.3); MONO # 0.7 10*3/uL (0.1-1.0); MONO % 4.9 % (3.0-9.0); NEUT # 11.7 10*3/uL (2.3-7.9); NEUT % 87.2 % (47.0-73.0); NUCLEATED RED BLOOD CELL 0.1 10*3/uL (0.0-0.0); NUCLEATED RED BLOOD CELL 0.4 % (0.0-0.0); PLATELET COUNT AUTOMATED 374 10*3/uL (130-400); RED BLOOD COUNT 3.77 10*6/uL (4.10-5.10); RED CELL DISTRI WIDTH 16.6 % (0-14.5); WHITE BLOOD COUNT 13.4 10*3/uL (4.8-10.8)
[2018-08-13 16:41] LABS: ACT PARTIAL THROMBO TIME 32.8 SECONDS (20.0-32.1); INTERNATIONAL NORM RATIO 1.5 (2.0-3.5)
[2018-08-13 16:46] LABS: ALBUMIN 2.7 gm/dl (3.1-4.5); CREATININE 1.73 mg/dL (0.55-1.02); POTASSIUM 2.8 mmol/L (3.5-5.1); TOTAL PROTEIN 7.5 gm/dL (6.4-8.2)
[2018-08-13 16:47] LABS: TROPONIN I 0.029 ng/ml (<0.045)
[2018-08-13 16:50] LABS: ABG BASE EXCESS 8.8 mmol/L (-2.0-2.0); ABG O2 SATURATION 87.3 % (95-97); ARTERIAL BLOOD GAS PCO2 36.8 mmHg (35-45); ARTERIAL BLOOD GAS PH 7.545 (7.35-7.45); ARTERIAL BLOOD GAS PO2 46.3 mmHg (80-90)
--- NOTE | 2018-08-13 17:13 | NUR ---
PT IS ON A HIGH FLOW NASAL CANNULA AT 15L. PULSE OX IS 90-92% ON THIS. PATY MCCAIN
--- NOTE | 2018-08-13 18:40 | NUR ---
A 73 yr old female, admitted to [facility], under the services of FELIPE Ramey DO with a diagnosis of CHF, TUBULAR NECROSIS, AND HYPOXIA. Chief complaint is increased shortness of breath since yesterday, multiple falls. Patient arrived via stretcher from ER. Monitor applied. Initial assessment completed. Vital signs taken and recorded. See assessment for past medical history, medications and allergies. Patient and/or family oriented to unit. [facility] visitation policy reviewed. Clothing/patient valuable form completed. GI MONSON
--- NOTE | 2018-08-13 19:01 | NUR ---
DR MCCLURE OF CONSULTATION. REVIEWED XRAYS AND LABS WITH HIM. ORDERS RECEIVED.
--- NOTE | 2018-08-13 19:08 | NUR ---
DR BARAJAS NOTIFIED OF CONSULTATION. REVIEWED LABS/XRAY WITH HIM. LAST ECHO MARCH 2018. HE SAID DR DOMINGO WILL SEE PATIENT IN AM AND ORDERED IV LASIX DAILY.
--- NOTE | 2018-08-13 19:10 | NUR ---
DR ESTRADA HAS ALREADY ORDERED IV BUMEX Q8HR. WILL NOT ORDER IV LASIX UNTIL DR DOMINGO SEES PT IN THE AM.
[2018-08-13] MEDS ORDERED: DOXYCYCLINE100 M3 PO (19:57)
--- NOTE | 2018-08-13 21:46 | NUR ---
PATIENT COMPLAINING OF LEG CRAMPS SAID SHE GET THEM ALL THE TIME BUT DENIES TAKING ANY MEDICATION AT HOME FOR IT. ALL DOCTOR ALLAN WHO GAVE ONE TIME DOSE OF FLEXRIL. WILL MONITOR FOR EFFECTIVENESS.
--- NOTE | 2018-08-13 22:46 | NUR ---
PATIENT PLACED ON BIPAP 01/27,FIO2 60% VIA MEDIUM MASK. HR 77, SPO2 95%
[2018-08-14] VITALS (47 sets, daily range): BP systolic 68–106; BP diastolic 35–61
[2018-08-14 05:29] LABS: ALBUMIN 2.1 gm/dl (3.1-4.5); CREATININE 1.46 mg/dL (0.55-1.02); PHOSPHOROUS 3.4 mg/dL (2.5-4.9); TOTAL PROTEIN 5.9 gm/dL (6.4-8.2)
[2018-08-14 05:34] LABS: THYROID STIM HORMONE (HS) 1.74 uIU/ml (0.358-4.75)
[2018-08-14 05:35] LABS: POTASSIUM 3.8 mmol/L (3.5-5.1)
[2018-08-14 06:06] LABS: ABG BASE EXCESS 10.3 mmol/L (-2.0-2.0); ABG HCO3 34.2 mmol/l (22-26); ARTERIAL BLOOD GAS PCO2 42.9 mmHg (35-45); ARTERIAL BLOOD GAS PH 7.512 (7.35-7.45); ARTERIAL BLOOD GAS PO2 59.3 mmHg (80-90)
--- NOTE | 2018-08-14 06:12 | NUR ---
PATIENT BP LO W CALLED DOCTOR ALLAN WHO ORDRED 1 LITERS OF FLUID AFTER STARTING FLUID PATIENT CURRENT BP IS 98/53 PATIENT RECIEVED 100 MLS OF NS BOLUS AND I CALLED DOCTOR ALLAN BACK AND HE SAID TO STOP THE FLUIDS. PATIENT HAS DENIED DIZZYNESS CP OR ANY ANY OTHER SYMPTOMS WITH THE LOW BP.
[2018-08-14 06:31] LABS: BASO % 0.1 % (0.0-1.0); EOS % 0.3 % (1.0-4.0); LYMPH # 0.7 10*3/uL (1.3-4.4); LYMPH % 6.6 % (27.0-41.0); MEAN CELL VOLUME 97.4 fl (81.0-99.0); MEAN CORPUSCULAR HGB 30.6 pg (27.0-31.0); MEAN CORPUSCULAR HGB CONC 31.4 g/dl (33.0-37.0); MEAN PLATELET VOLUME 9.8 fl (9.6-12.3); MONO # 0.5 10*3/uL (0.1-1.0); MONO % 5.3 % (3.0-9.0); NEUT # 8.6 10*3/uL (2.3-7.9); NEUT % 86.2 % (47.0-73.0); NUCLEATED RED BLOOD CELL 0.2 % (0.0-0.0); RED BLOOD COUNT 3.04 10*6/uL (4.10-5.10); RED CELL DISTRI WIDTH 16.8 % (0-14.5); WHITE BLOOD COUNT 9.9 10*3/uL (4.8-10.8)
[2018-08-14 06:33] LABS: HEMATOCRIT 29.6 % (37.0-47.0); HEMOGLOBIN 9.3 g/dl (12.0-16.0); PLATELET COUNT AUTOMATED 257 10*3/uL (130-400)
[2018-08-14 06:44] LABS: INTERNATIONAL NORM RATIO 1.3 (2.0-3.5)
--- NOTE | 2018-08-14 07:14 | NUR ---
asked patient about code status she said she wants everything done.
--- NOTE | 2018-08-14 07:45 | NUR ---
PATIENT PLACED ON BIPAP AT THIS TIME. RESPIRATORY THERAPY NOTIFIED. PATIENT'S PULSE OX 95% ON BIPAP. RESTING COMFORTABLY IN HER BED. NO S/S OF DISTRESS. CALL LIGHT WTIHIN REACH.
--- NOTE | 2018-08-14 08:00 | NUR ---
DR DOMINGO IN TO SEE PATIENT AT THIS TIME. NO NEW ORDERS RECEIVED. NOTIFIED THAT PATIENT IS ON BUMEX DAILY, AND EDEMA HAS REDUCED SINCE RECEIVED BUMEX.
--- NOTE | 2018-08-14 08:05 | NUR ---
RESPIRATORY IN TO DO BIPAP CHECK. NO ADJUSTMENTS MADE. PATIENT SLEEPING. SPEECH HERE TO DISCUSS PATIENT. STATES THEY WILL TAKE PATIENT TO DO MODIFIED BARIUM SWALLOW AT 0930 THIS MORNING. PATIENT WILL REMAIN ON BIPAP UNTIL THEN. PATIENT ALSO FOR A CHEST XRAY 2V AND A VENOUS US OF BLE TODAY.
--- NOTE | 2018-08-14 08:31 | NUR ---
DR KERR IN TO SEE PATIENT AT THIS TIME.
--- NOTE | 2018-08-14 08:59 | NUR ---
PATIENT GOING DOWN FOR TESTS. NO S/S OF DISTRESS. HOOKED TO PORTABLE MONITOR.
--- NOTE | 2018-08-14 09:00 | NUR ---
Hod Carrier in to talk to patient. Patient states lives at home with her . There are 0 steps in the home. Physician: Dr. Roberth Reynoso Pharmacy: [facility] Home health services: none Patient's level of ADLs: MINIMAL ASSIST Patient has working utilities: yes DME: would like a walker but it would have to be small due to her door openings, she would also like a nebulizer, she believes the aerosol treatments help her more than the inhalers. O2 @ 3L nc, portable O2 tanks, O2 supplier [facility] Follow-up physician's appointment after d/c: will be made by the hospitalist nurse director upon discharge Does patient want to access PORTAL?: no Discharge plan discussed with patient. She lives at home with her and her daughter assisting with ADLs. Discussed home health care services and she denies any home needs at this time. When medically stable she will be discharged to home. MIRTA CEE
[2018-08-14 09:05] LABS: VITAMIN D, 25-HYDROXY 55.2 ng/mL (30-100)
--- NOTE | 2018-08-14 09:51 | NUR ---
MBS preliminary note MBS completed upright in chair with viewing in laateral plane. Radiologist present for study. paitnet able to feed self and follow simple commands to administered thin liquid via sequential sips from straw approximately 4-5 normal sized bolus amounts: 1 teaspoon of pudding with barium coating and a piece of turkey sandwhich coated with barium. Oral phase judged as mormal for bolus formation, cohesion, mastication and posterior transfer of bolus for all consistencies with adequate control and no concern for oral residue or pocketing. Pharyngeal phase normal for tongue base to powterior wall contraction,laryngeal movement and minimal vallecular stasis eventually cleared to trace by independent use of dry swallows consecutively by patient. Suspected possible very trace and very mild transient penetration into laryngeal vestibule but cleared with laryngeal squeeze and movement on thin liquids. Impression and Recommendations: Continue regular diet consistency and no therapy or intervention recommended as normal oral and pharygneal phases of swallow. Discussed upright 90 degrees for all intake as patient reports choking episodes are mostly at night when she drinks. Kezia Allen MA CCC-MECHANIC INSULATOR
--- NOTE | 2018-08-14 10:25 | NUR ---
CALLED DR KERR ABOUT PATIENT'S BP BEING LOW. INSTRUCTED TO CALL DR DOMINGO. CALLED ANSWERING SERVICE. AWAITING RETURN CALL.
--- NOTE | 2018-08-14 10:28 | NUR ---
DR DOMINGO RETURNED CALL. STATES TO HOLD AMIO AND BUMEX UNTIL BP IS >100 SYSTOLIC.
--- NOTE | 2018-08-14 10:55 | NUR ---
DR ESTRADA IN TO SEE THE PATIENT. WANTS CALLED WITH A BP FROM BOTH ARMS AT NOON. PATIENT GIVEN ALL MEDICATIONS EXCEPT BLOOD PRESSURE MEDS. NO PROBLEMS SWALLOWING MEDICATIONS. PASSED SWALLOW EVAL THIS MORNING. CALL LIGHT IN REACH. FAMILY AT BEDSIDE.
--- NOTE | 2018-08-14 11:15 | NUR ---
1115 PLACED PATIENT ON OPTIFLOW-80%O2, 30L. SPO2 96%. WILL CONTINUE TO MONITOR
--- NOTE | 2018-08-14 12:17 | NUR ---
NOTIFIED DR KERR THAT PATIENT'S BP IN R ARM IS 86/42 AND LEFT ARM IS 82/38. CALLED ANSWERING SERVICE FOR DR DOMINGO. AWAITING CALL BACK TO DETERMINE IF HE WANTS US TO START PRESSORS ON THE PATIENT.
--- NOTE | 2018-08-14 12:37 | NUR ---
STILL WAITING FOR RETURNING CALL FROM DR DOMINGO.
--- NOTE | 2018-08-14 13:18 | NUR ---
SPOKE WITH DR DOMINGO R/T PT'S CONTINBUED LOW BP. CURRENT BP IS 91/49 WITH MAP OF 62. PT IS WARMA ND DRY. PT DENIES DIZZINESS OR LIGHTHEADEDNESS AT PRESENT TIME. PT JUST UP TO BSC FOR URINE. PT STATES HER BP IS "ALWAYS LOW." DR DOMINGO STATED THAT SYSTOLIC PRESSURE OF 91 IS GOOD FOR PT. HE ALSO STATED THAT IF NEEDED PT COULD BE STARTED ON NEOSYNEPHEREINE. DR GARCIA UPDATED ON WHAT DR DOMINGO STATED.
--- NOTE | 2018-08-14 14:37 | NUR ---
MIGUEL A STARTED ON PATIENT AT 37.1 MCG/MIN OR 55.7ML/HR BASED ON PATIENT'S WEIGHT. PATIENT PLACED ON Q15M BP'S. NO S/S OF DISTRESS. CALL LIGHT WITHIN REACH.
--- NOTE | 2018-08-14 15:14 | NUR ---
Received message patient is requesting living will paperwork. In to see patient, she was sleeping. Placed living will and HPOA paperwork on patients bedside table.
--- NOTE | 2018-08-14 15:15 | NUR ---
1515 PATIENT REMAINS ON OPTIFLOW 30L, DECREASED FO2 TO 65%. SPO2 95%. IS RESTING COMFORTABLY. WILL CONTINUE TO MONITOR
--- NOTE | 2018-08-14 20:20 | NUR ---
PT. RESTING IN BED WITH OPTI FLOW ON 30L. HEP LOCK IN RAN AND RA ASYMPT. LUNGS DIMINISHED WITH CRACKLES BILAT, PULSE OX 94% ON 30L OPTI FLOW. ABDOMEN SOFTLY DISTENDED AND NORMO. NO PERIPHERAL EDEMA NOTED. NEOSYNEPHRINE CONTINUES ORDERED VIA RA, SITE ASYMPT. TYLENOL GIVEN ORDERED FOR TEMP OF 102.1 AT 1958. WILL CONTINUE TO MONITOR. DR. STANTON JORDAN OF ELEV TEMP. ENDY CLIFFORD RN
[2018-08-14 21:39] LABS: BILIRUBIN NEGATIVE (NEGATIVE); BLOOD NEGATIVE (NEGATIVE); CLARITY SL CLOUDY (CLEAR); COLOR YELLOW (YELLOW); GLUCOSE NEGATIVE (NEGATIVE); KETONE NEGATIVE (NEGATIVE); LEUKO ESTERASE NEGATIVE (NEGATIVE); NITRITE NEGATIVE (NEGATIVE); SPECIFIC GRAVITY 1.025 (1.005-1.030); UROBILINOGEN 0.2 E.U./dl (0.2-1.0)
[2018-08-14 21:46] LABS: WBC 0-2 wbc/hpf (0-5)
[2018-08-14 21:47] LABS: BACTERIA TRACE; EPITHELIAL CELLS 15-20; YEAST TRACE
[2018-08-15] VITALS (94 sets, daily range): BP systolic 74–112; BP diastolic 38–71
[2018-08-15 05:46] LABS: ALBUMIN 2.1 gm/dl (3.1-4.5); CREATININE 1.2 mg/dL (0.55-1.02); TOTAL PROTEIN 5.7 gm/dL (6.4-8.2)
[2018-08-15 05:53] LABS: BASO % 0.1 % (0.0-1.0); EOS # 0.1 10*3/uL (0.0-0.4); EOS % 0.5 % (1.0-4.0); HEMATOCRIT 29.8 % (37.0-47.0); HEMOGLOBIN 9.5 g/dl (12.0-16.0); LYMPH # 0.8 10*3/uL (1.3-4.4); LYMPH % 5.5 % (27.0-41.0); MEAN CELL VOLUME 95.8 fl (81.0-99.0); MEAN CORPUSCULAR HGB 30.5 pg (27.0-31.0); MEAN CORPUSCULAR HGB CONC 31.9 g/dl (33.0-37.0); MEAN PLATELET VOLUME 9.7 fl (9.6-12.3); MONO # 0.7 10*3/uL (0.1-1.0); MONO % 4.6 % (3.0-9.0); NEUT # 12.5 10*3/uL (2.3-7.9); NEUT % 87.8 % (47.0-73.0); NUCLEATED RED BLOOD CELL 0.1 % (0.0-0.0); PLATELET COUNT AUTOMATED 289 10*3/uL (130-400); RED BLOOD COUNT 3.11 10*6/uL (4.10-5.10); RED CELL DISTRI WIDTH 16.9 % (0-14.5); WHITE BLOOD COUNT 14.2 10*3/uL (4.8-10.8)
[2018-08-15 06:05] LABS: POTASSIUM 2.3 mmol/L (3.5-5.1)
--- NOTE | 2018-08-15 07:09 | NUR ---
pt not on bipap at this time
--- NOTE | 2018-08-15 07:31 | NUR ---
DR KERR NOTIFIED OF PATIENT'S POTASSIUM LEVEL OF 2.3. STATES SHE WILL PLACE ORDERS.
--- NOTE | 2018-08-15 08:00 | NUR ---
PATIENT TAKEN DOWN TO CHEST XRAY WITH RN ACCOMPANYING. NO S/S OF DISTRESS DURING TRIP. PATIENT WAS PLACED ON 15L NON REBREATHER MASK DURING TRANSPORT. RETURNED TO 35L ON OPTIFLOW WHEN RETURNED TO ROOM. REPOSITIONED IN BED. NO S/S OF DISTRESS. CALL LIGHT WITHIN REACH.
--- NOTE | 2018-08-15 09:00 | NUR ---
Manager Mall in to see patient. No new needs or request at this time. She denies any home needs. Daughter at the bedside states she does all of the caring for her mother. When medically stable she will be discharged to home.
--- NOTE | 2018-08-15 09:29 | NUR ---
Occupational THerapy evaluation offered this date. Patient declined this date with c/o fatigue. OTR will attempt at a later date. Rosy Velásquez OTR/l
--- NOTE | 2018-08-15 10:03 | NUR ---
DR GUERRA AND DR MCCLURE IN TO SEE PATIENT.
--- NOTE | 2018-08-15 10:05 | NUR ---
DR ESTRADA IN TO SEE PATIENT.
--- NOTE | 2018-08-15 10:06 | NUR ---
PATIENT SWITCHED TO LEVOPHED. DISCUSSED IV INFILTRATION RISKS WITH PATIENT DUE TO MEDICATION BEING RUN THROUGH A PERIPHERAL IV SITE. PATIENT DISPLAYS NO S/S OF DISTERSS. FAMILY AT BEDSIDE. CALL LIGHT WITHIN REACH.
--- NOTE | 2018-08-15 10:51 | NUR ---
PHYSICAL THERAPY PAtient respectfully declines PT this date. Nursing reports patient is getting OOB to use bedisde commode. Will attempt at a later date. Thank you for this referral. Maria Antonia Valentin,PT
--- NOTE | 2018-08-15 11:00 | NUR ---
PATIENT TAKEN DOWN TO CT ACCOMPANIED BY THIS RN. PLACED ON TRANSPORT MONITOR AND NONREBREATHER MASK. TOLERATED TEST WELL. NO S/S OF DISTRESS DURING TRANSPORT. RETURNED TO ROOM. REPOSITIONED FOR COMFORT. PLACED ON OPTIFLOW. CALL LIGHT PLACED WITHIN REACH.
--- NOTE | 2018-08-15 13:30 | NUR ---
INCREASE LEVOPHED TO 6MCG/MIN OR 45 ML/HR DUE TO MAP OF 59 AND 62 RECENTLY.
--- NOTE | 2018-08-15 13:35 | NUR ---
PATIENT RECEIVED TYLENOL FOR INCREASED TEMP OF 100.9.
--- NOTE | 2018-08-15 14:18 | NUR ---
PATIENT PLACED ON BIPAP.
--- NOTE | 2018-08-15 14:20 | NUR ---
Bedside Swallowing Assessment preliminary report Patient seen at bedside and CPAP mask removed per nurse barnett and replaced with nasal cannula. patients oxygen saturation levels remained above 91 for brief assessment. Patient pointed to pharyngeal mid region to report a sensation of globus and prior MBS completed 08/14/2018 she ponted to upper esophogus to report globus as that is her only complaint regaridng swallowing difficulty at this time and she reports it is only "sometimes". Patient denies GI history or current medications and denies current symptoms of GI problems. Bedside assessment yields no overt s/s aspiration on thin liquids with adequate oral control,timing and coordination into phayrgneal phase palpated at bedside. Larygneal elevation judged wfl but difficult to coordinate measuring machine programmer at bedeside. MBS yesterday revealed normal swallow with possible trace penetration but transient into larygneal vestibule with thin liquids on one instance but this can be normal in elderly adults.No speech services recommended at this time as assessment today yields normal swallowing consistent wiht MBS results from yesterday. Physican may wish to consider discussing GI issues further with patient as globus in pharynx is often due to issues in the esophogus and patient pointed to her upper esophogus 08/14/2018 and told CLUB CAR ATTENDANT that she felt foods and liguids sticking in this area. Patient denies waking up with a sore throat or "heart burn" but did report issues with swallowing are more consistent night when she takes a drink.Educated patient at time of MBS to sit upright for all po intake. No diet recommendations or therpay recommended at this time. Kezia Allen MA CCC-CLUB CAR ATTENDANT
[2018-08-15 14:38] LABS: CREATININE 1.1 mg/dL (0.55-1.02)
[2018-08-15 14:41] LABS: POTASSIUM 3.3 mmol/L (3.5-5.1)
--- NOTE | 2018-08-15 15:18 | NUR ---
rn placed pt on bipap 1345. pt still on bipap at this time
--- NOTE | 2018-08-15 17:34 | NUR ---
CALLED DR GARCIA R/T PATIENT'S IV SITE IN RIGHT ARM INFILTRATING. MOVED LEVOPHED TO OTHER IV SITE,BUT INQUIRED ABOUT CENTRAL LINE PLACEMENT FOR THIS PATIENT.
--- NOTE | 2018-08-15 18:49 | NUR ---
PATIENT'S MULTILUMEN CATHETER IN PLACE. ORDER TO USE PLACED. LEVOPHED MOVED TO MULTILUMEN. PATIENT TOLERATED WHOLE PROCEDURE WELL OF INSERTION. NO S/S OF DISTRESS DURING OR AFTER PROCEDURE. PATIENT DENIES ANY PAIN OR DISCOMFORT. CALL LIGHT PLACED WITHIN REACH. GRANDDAUGHTER AT BEDSIDE.
--- NOTE | 2018-08-15 21:30 | NUR ---
DR BARAJAS IN TO SEE PT. NO NEW ORDERS GIVEN.
--- NOTE | 2018-08-15 22:05 | NUR ---
MEDICATED WITH RESTORIL PER PRN ORDER FOR C/O INSOMNIA.
[2018-08-16] VITALS (96 sets, daily range): BP systolic 73–127; BP diastolic 33–100
[2018-08-16 05:59] LABS: BASO % 0.2 % (0.0-1.0); EOS # 0.1 10*3/uL (0.0-0.4); EOS % 0.9 % (1.0-4.0); HEMATOCRIT 29.1 % (37.0-47.0); HEMOGLOBIN 9.2 g/dl (12.0-16.0); LYMPH # 0.5 10*3/uL (1.3-4.4); LYMPH % 4.4 % (27.0-41.0); MEAN CELL VOLUME 96.7 fl (81.0-99.0); MEAN CORPUSCULAR HGB 30.6 pg (27.0-31.0); MEAN CORPUSCULAR HGB CONC 31.6 g/dl (33.0-37.0); MEAN PLATELET VOLUME 9.6 fl (9.6-12.3); MONO # 0.5 10*3/uL (0.1-1.0); MONO % 4.6 % (3.0-9.0); NEUT # 9.8 10*3/uL (2.3-7.9); NEUT % 88.9 % (47.0-73.0); PLATELET COUNT AUTOMATED 239 10*3/uL (130-400); RED BLOOD COUNT 3.01 10*6/uL (4.10-5.10); RED CELL DISTRI WIDTH 17.2 % (0-14.5)
[2018-08-16 06:04] LABS: ALBUMIN 1.9 gm/dl (3.1-4.5); ALKALINE PHOSPHATASE 69 U/L (45-117); BUN 13 mg/dl (7-24); CHLORIDE 96 mmol/L (98-107); CREATININE 1.02 mg/dL (0.55-1.02); POTASSIUM 2.9 mmol/L (3.5-5.1); SGOT/AST 14 IU/L (3-35); SGPT/ALT 15 U/L (12-78); SODIUM 137 mmol/L (136-145); TOTAL PROTEIN 5.8 gm/dL (6.4-8.2)
--- NOTE | 2018-08-16 06:33 | NUR ---
DR ARCE NOTIFIED OF K+ 2.9.
--- NOTE | 2018-08-16 07:55 | NUR ---
PT. OFF OPTIFLOW AND PLACED BACK ON HFNC AT 8L, SPO2 92%, NO INCREASED WORK OF BRATHING NOTED, PT. TOLERATING WELL, DENIES SHORTNESS OF BREATH.
--- NOTE | 2018-08-16 08:36 | NUR ---
PT UP TO BSC WITH MINIMAL ASSIST. IV LEVOPHED REMAINS INFUSING AT 5MCG/MIN INTO RIGHT IJ MLC WITHOUT DIFFICULTY. SBP 80-LOW 100'S. WILL CONTINUE TO MONITOR PT.
--- NOTE | 2018-08-16 09:06 | NUR ---
Occupational Therapy evaluation offered, but patient declined with SOB and extreme fatigue after using bedside commode. OTR will recheck at a later time. Britt Velásquez OTR/Franko
--- NOTE | 2018-08-16 09:14 | NUR ---
DR MCCLURE IN TO SEE PT.
--- NOTE | 2018-08-16 09:48 | NUR ---
PHYSICAL THERAPY Physical Therapy Evaluation attempted. Patient respectfully declines at this time. [place] [facility] to bed with nursing. Fatigued and unable to participate. Will try again later. Thank you. Carolina Galeano, PT,DPT.
--- NOTE | 2018-08-16 11:03 | NUR ---
CARLOTTA, FROM SOCIAL SERVICE DE[employer]. HERE TO SPEAK WITH PT AND HER FAMILY R/T LIVING WILL AND POA.
--- NOTE | 2018-08-16 11:15 | NUR ---
KCL BOLUSES COMPLETED. PT TOLERATED INFUSIONS WELL.
--- NOTE | 2018-08-16 11:32 | NUR ---
PT RESTING. NICOLA CUTE DISTRESS NOTED.
--- NOTE | 2018-08-16 12:20 | NUR ---
Teacher Of The Sight Impaired in to see patient. No new needs or request at this time. She denies any home needs. When medically stable she will be discharged to home.
--- NOTE | 2018-08-16 14:23 | NUR ---
PHYSICAL THERAPY Physical Therapy evaluation attempted. Patient refused afternoon attempt due to increased fatigue and SOB following transfers to [facility]. Plan to try again tomorrow. Thank you. Carolina Galeano, PT,DPT
[2018-08-16 14:35] LABS: BUN 11 mg/dl (7-24); CHLORIDE 97 mmol/L (98-107); CREATININE 1.03 mg/dL (0.55-1.02); POTASSIUM 3.6 mmol/L (3.5-5.1); SODIUM 134 mmol/L (136-145)
--- NOTE | 2018-08-16 16:13 | NUR ---
IN TO SEE PATIENT AT THIS TIME. NO S/S OF DISTRESS. PATIENT IS ON 8LHF NC. DENIES ANY SOB AT THIS TIME. PATIENT'S LUNGS PRESENT WITH CRACKLES T/O. NO EDEMA NOTED. CALL LIGHT WITHIN REACH.
--- NOTE | 2018-08-16 18:48 | NUR ---
PATIENT SITTING UP IN BED EATING DINNER. BUMPED PATIENT'S LEVO UP TO 6MCG DUE TO PATIENT RECEIVING AMIO. PATIENT'S O2 ALSO BUMPED UP TO 9LHF NC DUE TO O2 SATS SITTING AT 86% AT REST. PATIENT SATS AT 91% AT REST AFTER. PATIENT'S MAP IS 67 AFTER LEVO CHANGE. NO S/S OF DISTRESS. TOOK MEDICATIONS WITHOUT ISSUE. CALL LIGHT PLACED WITHIN REACH.
--- NOTE | 2018-08-16 20:00 | NUR ---
PT RESTING IN BED. PT A&O, BIPAP ON AFTER PT UP TO BSC AND BECAME SOB. POX 93% ON BIPAP AT THIS TIME. NO ACUTE DISTRESS NOTED. RIGHT IJ MLC PATENT AND IVF'S INFUSING ORDERED WITHOUT DIFFICULTY. LUNGS NOTED TO HAVE CRACKLES T/O POST, LEFT GREATER THAN RIGHT. PT STATES SHE IS FEELING BETTER NOW. NO COMPLAINTS VOICED.
--- NOTE | 2018-08-16 20:00 | NUR ---
Pt placed on BiPap due to getting very SOB when coming back from bedside commode. BiPap 12/6 and 60%. SpO2 94% Alarms on and audible.
--- NOTE | 2018-08-16 21:15 | NUR ---
MEDICATED WITH RESTORIL PER PRN ORDER FOR C/O INSOMNIA.
[2018-08-17] VITALS (96 sets, daily range): BP systolic 60–142; BP diastolic 37–71
--- NOTE | 2018-08-17 04:45 | NUR ---
PT VERY SOB WHEN ATTEMPTING TO GET UP TO BSC, DR KERR NOTIFIED AND NEW ORDER FOR FOLWY CATH TO BE INSERTED. 16 FR BETH PLACED WITHOUT DIFFICULTY AND IMMEDIATE RETURN OF 400CC OF CLEAR YELLOW URINE. PT RAYMOND WELL.
[2018-08-17 06:26] LABS: HEMATOCRIT 28.4 % (37.0-47.0); MEAN CELL VOLUME 97.9 fl (81.0-99.0); MEAN CORPUSCULAR HGB CONC 31.7 g/dl (33.0-37.0); MEAN PLATELET VOLUME 9.6 fl (9.6-12.3); PLATELET COUNT AUTOMATED 252 10*3/uL (130-400); RED CELL DISTRI WIDTH 17.4 % (0-14.5); WHITE BLOOD COUNT 13.5 10*3/uL (4.8-10.8)
[2018-08-17 06:44] LABS: ALBUMIN 1.8 gm/dl (3.1-4.5); ALKALINE PHOSPHATASE 76 U/L (45-117); BUN 10 mg/dl (7-24); CHLORIDE 99 mmol/L (98-107); CREATININE 0.99 mg/dL (0.55-1.02); PHOSPHOROUS 3.4 mg/dL (2.5-4.9); POTASSIUM 3.8 mmol/L (3.5-5.1); SGOT/AST 14 IU/L (3-35); SGPT/ALT 13 U/L (12-78); SODIUM 137 mmol/L (136-145); TOTAL PROTEIN 5.8 gm/dL (6.4-8.2)
--- NOTE | 2018-08-17 07:08 | NUR ---
PATIENT CURRENTLY ON OPTI FLOW AT 70%-40 L/M. HR 98, RR 20, SPO2 98%.
--- NOTE | 2018-08-17 07:27 | NUR ---
Shift chart check completed.
[2018-08-17 07:35] LABS: PLATELET SUFFICIENCY NORMAL (NORMAL); POLYCHROMASIA SLIGHT; TOTAL CELLS COUNTED 100 #CELLS
--- NOTE | 2018-08-17 09:00 | NUR ---
Clearance Rep in to see patient. She is tearful. Asked if there was anything CM could do for her and she stated no. Discharge plan undecided at this time.
--- NOTE | 2018-08-17 11:43 | NUR ---
PATIENT SWITCHED TO 10 L/M HI ORACIO CANNULA . SPO2 92% HR 103.
--- NOTE | 2018-08-17 11:48 | NUR ---
UNABLE TO MAINTAIN SATURATION ON HI ORACIO, PATIENT SWITCHED BACK TO OPTI ORACIO ON 70%-40L. SPO2 94% HR 103.
--- NOTE | 2018-08-17 13:30 | NUR ---
LEVOPHED DRIP INCREASED 10mcg (75cc)
--- NOTE | 2018-08-17 16:20 | NUR ---
DR BARAJAS CALLED ABOUT HAVING TO INCREASE LEVOPHED - RHYTHM DISCUSSED AND ORDER TO STOP AMIODARONE. DR GARCIA CALLED AND MESSAGE LEFT
--- NOTE | 2018-08-17 17:45 | NUR ---
DR MCCLURE CALLED WITH BRIGHT RED SPUTUM AND LEVOPHED DOSE, PT FATIGUE ALL DAY AND NOT WANTING TO EAT. CODE STATUS REVIEWED. DR GARCIA UPDATED.
--- NOTE | 2018-08-17 17:53 | NUR ---
LEVOPHED INCREASED TO 12mcg/min MAP WILL NOT STAY ABOVE 60. GOAL IS >=65
--- NOTE | 2018-08-17 18:10 | NUR ---
OPTIFLOW INCREASED TO 80% D/T SATS BOUNCING FROM 88-90%
--- NOTE | 2018-08-17 21:05 | NUR ---
PATIENT ADMINISTERED 650MG OF TYLENOL FOR ELEVATED TEMPERATURE. RN WILL CLOSELY MONITOR FOR RELIEF OF SYMPTOMS
--- NOTE | 2018-08-17 22:18 | NUR ---
DR RAMEY MADE AWARE OF PATIENTS BLOOD PRESSURE READING.
--- NOTE | 2018-08-17 22:23 | NUR ---
DR RAMEY ON FLOOR TO ASSESS PATIENT. DR BARAJAS CALLED REGARDING BLOOD PRESSURE. ORDERS RECIEVED
--- NOTE | 2018-08-17 23:55 | NUR ---
PATIENTS TEMPERATURE IS BACK WITHIN NORMAL RANGE 98.0 PATIENT IS RESTING QUIETLY WITH EYES CLOSED, APPEARS TO BE SLEEPING. NO SIGNS OR SYMPTOMS OF DISTRESS SEEN ON BIPAP AT 70% OXYGEN. LEVOPHED INFUSING AT 18MCGS. RN WILL CONTINUE TO MONITOR
[2018-08-18] VITALS (97 sets, daily range): BP systolic 68–129; BP diastolic 23–616
[2018-08-18 07:02] LABS: HEMOGLOBIN 9.5 g/dl (12.0-16.0); MEAN CELL VOLUME 97.4 fl (81.0-99.0); MEAN CORPUSCULAR HGB 30.8 pg (27.0-31.0); MEAN CORPUSCULAR HGB CONC 31.7 g/dl (33.0-37.0); MEAN PLATELET VOLUME 9.5 fl (9.6-12.3); PLATELET COUNT AUTOMATED 248 10*3/uL (130-400); RED BLOOD COUNT 3.08 10*6/uL (4.10-5.10); RED CELL DISTRI WIDTH 17.4 % (0-14.5); WHITE BLOOD COUNT 15.2 10*3/uL (4.8-10.8)
[2018-08-18 07:42] LABS: CHLORIDE 101 mmol/L (98-107); POTASSIUM 3.7 mmol/L (3.5-5.1); SODIUM 137 mmol/L (136-145)
[2018-08-18 07:49] LABS: ALBUMIN 1.7 gm/dl (3.1-4.5); ALKALINE PHOSPHATASE 102 U/L (45-117); BUN 9 mg/dl (7-24); CREATININE 0.95 mg/dL (0.55-1.02); PHOSPHOROUS 3.9 mg/dL (2.5-4.9); SGOT/AST 20 IU/L (3-35); SGPT/ALT 14 U/L (12-78); TOTAL PROTEIN 5.9 gm/dL (6.4-8.2)
[2018-08-18 08:12] LABS: PLATELET SUFFICIENCY NORMAL (NORMAL); POLYCHROMASIA SLIGHT; TOTAL CELLS COUNTED 100 #CELLS
--- NOTE | 2018-08-18 11:55 | NUR ---
PATIENT AGREED TO ALLOW STAFF TO TURN HER ONTO HER SIDE TO RELIEVE BACK ACHE. TURNED FROM SIDE TO SIDE (CHANGING SHEET) PATIENT STARTED USING ALL ACCESSORY MUSCLES, RR JUMPED TO 45, SATS DROPPED TO 75% ON OPTIFLOW AT 70% & HEART RATE WENT FROM 116 TO 74 WITH INCREASED ANXIETY & "CAN'T BREATHE"...PLACED ON BIPAP. WITHIN 7 MINUTES ON BIPAP 12/8 80% O2. HR BACK TO 118, RESP RATE TO 25 & SATS UP TO 97% MUCH CALMER
--- NOTE | 2018-08-18 15:55 | NUR ---
RINGS WERE REMOVED FROM HANDS PER PATIENT'S REQUEST AND GIVEN TO GRAND-DAUGHTER CANDIDO PER THE PATIENT REQUEST. CLOTHING LIST MARKED TO REFLECT THIS
--- NOTE | 2018-08-18 16:20 | NUR ---
LAB IS UNABLE TO USE THE PREVIOUS SPUTUM SPECIMEN FOR THE FUNGAL. NEW SPECIMEN NEEDED & ORDERED
--- NOTE | 2018-08-18 16:56 | NUR ---
15;00 PT TAKEN OFF OF BIPAP AND PLACED OPTI FLOW. FIOS INCREASED TO 100% AND 55 LPM TO MAINTAIN SPO2 OF 88-90 AT THIS TIME. PT WITH FAMILY AND TALKING ALOT. RESPS REGULAR AND UNLABORED.
--- NOTE | 2018-08-18 18:01 | NUR ---
PT REPOSITINED AND SAID THAT SHE HOPED HER FAMLILY JUST LET HER REST TONIGHT. WHEN ASKED IF SHE WANTED ME TO TURN THEM AWAY SHE SAID NO BUT WE AGREED TO 5 MIN LIMIT
--- NOTE | 2018-08-18 18:03 | NUR ---
NO BATH DONE TODAY PATIENT UNABLE TO TOLERATE ANY TURNS WITHOUT CHANGES IN HEART RATE, RESP RATE, O2 SATS & BECOMING VERY DYSPNIC
--- NOTE | 2018-08-18 18:11 | NUR ---
PATIENT BACK IN A-FIB RATE 87. SEE STRIP
--- NOTE | 2018-08-18 20:20 | NUR ---
DR GUERRA CALLED REGARDING PATIENTS INCREDASSED ANXIETY AND INCREASED WORK OF BREATHING WHILE BEING SWITCHED ONTO THE BIPAP. ORDERS RECIEVED, WILL MEDICATE PATIENT ACCORDINGLY.
--- NOTE | 2018-08-18 20:26 | NUR ---
1MG OF ATIVAN IV GIVEN PER DRS ORDERS AT THIS TIME FOR INCREASED ANXIETY. PATIENT RESPIRATORY RATE INCREASED SHE WAS PLACED IN THE BIPAP AND SHE STATED "IT IS HARD TO BREATH" RN WILL MONITOR FOR EFFECTIVENESS
--- NOTE | 2018-08-18 21:02 | NUR ---
20:10 PT PLACED ON BIPAP. SPO2 ON OPTI FLOW AT 100% AND 55 LPM DROPPED TO 83%. PT SOB. TOLERATING WELL/ SPO2 INCREASED TO 90% SETTINGS: FIO2 90 AND 15/8 INITIALLY.
--- NOTE | 2018-08-18 23:30 | NUR ---
DR GUERRA CALLED REGARDING ELEVATED HEARTRATE. ORDERS RECIEVED.
--- NOTE | 2018-08-18 23:40 | NUR ---
PATIENT MEDICATED WITH DIGOXIN IV PER DRS ORDERS. SEE EMAR. RN WILL MONITOR THIS PATIENT
[2018-08-19] VITALS (96 sets, daily range): BP systolic 10–129; BP diastolic 36–75
--- NOTE | 2018-08-19 00:18 | NUR ---
ONE TIME DOSE OF CORDARONE GIVEN AT THIS TIME PER DRS ORDERS. SEE EMAR.
--- NOTE | 2018-08-19 05:15 | NUR ---
PATIENT BACK IN SINUS RHYTHM AT THIS TIME, RATE IS 108 PER INDUSTRIAL WELDER. PULSE OXIMETRY HAS ALSO IMPROVED WITH THE TRANSISTION INTO NSR. RN WILL CONTINUE TO MONITOR. STIP PLACED INTO PATIENTS CHART
[2018-08-19 09:36] LABS: HEMATOCRIT 28.2 % (37.0-47.0); MEAN CELL VOLUME 97.6 fl (81.0-99.0); MEAN CORPUSCULAR HGB 31.1 pg (27.0-31.0); MEAN CORPUSCULAR HGB CONC 31.9 g/dl (33.0-37.0); MEAN PLATELET VOLUME 9.4 fl (9.6-12.3); PLATELET COUNT AUTOMATED 235 10*3/uL (130-400); RED BLOOD COUNT 2.89 10*6/uL (4.10-5.10); RED CELL DISTRI WIDTH 17.5 % (0-14.5); WHITE BLOOD COUNT 15.8 10*3/uL (4.8-10.8)
[2018-08-19 09:51] LABS: ALBUMIN 1.4 gm/dl (3.1-4.5); ALKALINE PHOSPHATASE 123 U/L (45-117); BUN 8 mg/dl (7-24); CHLORIDE 103 mmol/L (98-107); CREATININE 1.01 mg/dL (0.55-1.02); PHOSPHOROUS 3.4 mg/dL (2.5-4.9); POTASSIUM 3.6 mmol/L (3.5-5.1); SGOT/AST 22 IU/L (3-35); SGPT/ALT 10 U/L (12-78); SODIUM 138 mmol/L (136-145); TOTAL PROTEIN 5.6 gm/dL (6.4-8.2)
[2018-08-19 10:29] LABS: TOTAL CELLS COUNTED 100 #CELLS
[2018-08-19 10:30] LABS: PLATELET SUFFICIENCY NORMAL (NORMAL); POLYCHROMASIA SLIGHT
--- NOTE | 2018-08-19 12:33 | NUR ---
FIO2 DECREASED TO 90% ON BIPAP POST BREATHING TREATMENT. MASK CHANGED TO PERFORM MAX MASK-LARGE. SPO2 90%, HR 120, PATIENT TOLERATING WELL.
--- NOTE | 2018-08-19 15:49 | NUR ---
DR. BARAJAS NOTIFIED OF HEART RATE REMAINING IN THE 120'S SINUS TACHYCARDIA
--- NOTE | 2018-08-19 16:00 | NUR ---
TAKEN OFF BI-PAP AND PLACED ON OXIMIZER AT 55 LITERS OXYGEN (100%), GIVEN SIPS OF WATER. HEART RATE INCREASED TO 130 SINUS TACH AND PULSE OX DROPPED TO 74%. RESPIRATORTY RATE INCREASED TO 30 BREATHS PER MINUTE. PLACED BACK ON BI-PAP
--- NOTE | 2018-08-19 21:20 | NUR ---
PATIENTS HEART RATE 175, PATIENT STRUGGLING TO BREATH UNDER BIPAP MASK. PATIENT DENIES CHEST PAIN. CONTACTED DR. BARAJAS, NEW ORDERS RECEIVED FOR DIG NOW AND 6HRS LATER. WILL MONITOR.
--- NOTE | 2018-08-19 21:30 | NUR ---
DIG GIVEN. HEART RATE SLOWLY COMING DOWN TO THE 120'S.
[2018-08-20] VITALS (17 sets, daily range): BP systolic 92–121; BP diastolic 44–64
--- NOTE | 2018-08-20 04:23 | NUR ---
PATIENT CALLED OUT TO BE MOVED TO HER LEFT SIDE. ONCE ADJUSTED, PATIENTS HEART RATE BEGAN TO DROP, PATIENT AGONAL BREATHING. CALL FAMILY, CALLED CODE. PATIENT IS A NO INTUBATION, STARTED CPR.
--- NOTE | 2018-08-20 04:29 | NUR ---
TIME OF , CALLED BY DR. HERNANDEZ
--- NOTE | 2018-08-20 06:37 | NUR ---
PATIENT LEFT FLOOR FOR HOME(JANEY)
== END 2018-08-20 06:37 | disposition expired | DRG 871 ==
LOC: ED 16:12 → ICCU 17:32 → EDHOLD 17:32 → 5E 17:55 → ICCU 18:13
PROVIDERS: Emergency Medicine; Internal Medicine; Nurse Practitioner Family; Student in an Organized Health Care Education/Training Program; ADMIT Internal Medicine
PROC: BD1BYZZ Fluoroscopy of Mouth/Oropharynx using Other Contrast (ICD-10-PCS; principal; 2018-08-14)
PROC: 5A09357 Assistance with Respiratory Ventilation, Less than 24 Consecutive Hours, Continuous Positive Airway Pressure (ICD-10-PCS; principal; 2018-08-14)
PROC: B244ZZZ Ultrasonography of Right Heart (ICD-10-PCS; 2018-08-15)
PROC: 02H633Z Insertion of Infusion Device into Right Atrium, Percutaneous Approach (ICD-10-PCS; 2018-08-15)
PROC: 5A09357 Assistance with Respiratory Ventilation, Less than 24 Consecutive Hours, Continuous Positive Airway Pressure (ICD-10-PCS; 2018-08-15)
PROC: 5A09357 Assistance with Respiratory Ventilation, Less than 24 Consecutive Hours, Continuous Positive Airway Pressure (ICD-10-PCS; 2018-08-16)
PROC: 5A09357 Assistance with Respiratory Ventilation, Less than 24 Consecutive Hours, Continuous Positive Airway Pressure (ICD-10-PCS; 2018-08-18)
PROC: 5A09457 Assistance with Respiratory Ventilation, 24-96 Consecutive Hours, Continuous Positive Airway Pressure (ICD-10-PCS; 2018-08-19)
DX: A41.9 Sepsis, unspecified organism (principal); I50.33 Acute on chronic diastolic (congestive) heart failure; J96.21 Acute and chronic respiratory failure with hypoxia; J18.9 Pneumonia, unspecified organism; E43 Unspecified severe protein-calorie malnutrition; R65.21 Severe sepsis with septic shock; N17.0 Acute kidney failure with tubular necrosis; E87.2 Acidosis; C34.12 Malignant neoplasm of upper lobe, left bronchus or lung; R04.2 Hemoptysis; J44.0 Chronic obstructive pulmonary disease with (acute) lower respiratory infection; E66.9 Obesity, unspecified; I11.0 Hypertensive heart disease with heart failure; D72.823 Leukemoid reaction; D64.9 Anemia, unspecified; E87.6 Hypokalemia; R13.10 Dysphagia, unspecified; I25.119 Atherosclerotic heart disease of native coronary artery with unspecified angina pectoris; I95.9 Hypotension, unspecified; B96.89 Other specified bacterial agents as the cause of diseases classified elsewhere; J98.09 Other diseases of bronchus, not elsewhere classified; I48.0 Paroxysmal atrial fibrillation; Z66 Do not resuscitate; Z51.5 Encounter for palliative care; E03.9 Hypothyroidism, unspecified; Z79.82 Long term (current) use of aspirin; Z79.899 Other long term (current) drug therapy; Z87.01 Personal history of pneumonia (recurrent); Z99.81 Dependence on supplemental oxygen; I25.2 Old myocardial infarction; Z91.81 History of falling; Z90.49 Acquired absence of other specified parts of digestive tract; Z87.891 Personal history of nicotine dependence; Z92.3 Personal history of irradiation; Z92.21 Personal history of antineoplastic chemotherapy